=== PATIENT | male | born 1945 | race Caucasian/White ===

== ENCOUNTER → 2018-04-14 08:02 | Outpatient (CLI) | payer OTHER, SELFPAY ==
[2018-04-14 08:28] LABS: Add Manual Diff / Slide Review NO; Basophils Percent Auto 0.8 % (0-2); Hemoglobin 15.3 g/dL (13.5-17.5); Lymphocytes Percent Auto 32.8 % (25-40); Mean Corpuscular HGB Conc 33.3 % (30-36); Mean Corpuscular Hemoglobin 30.4 PG (26-34); Mean Corpuscular Volume 91.6 fL (80-100); Monocytes Percent Auto 10.9 % (3-14); Neutrophils Absolute Auto 2300 /uL (3000-5900); Neutrophils Percent Auto 50.5 % (50-75); Platelet Count 193 X10^3/uL (150-400); Red Blood Cell Count 5.02 X10^6/uL (4.5-5.9); Red Cell Distribution Width 13.1 % (11.6-14.8); White Blood Cell Count 4.6 X10^3/uL (4.5-11.0)
[2018-04-14 08:52] LABS: Alanine Aminotransferase 55 IU/L (21-72); Albumin 4.1 g/dL (3.5-5.0); Albumin Globulin Ratio 1.4 (1.0-2.8); Alkaline Phosphatase 92 U/L (38-126); Aspartate Aminotransferase 36 IU/L (17-59); BUN Creatinine Ratio 24.3 (6-22); Bilirubin Total 0.6 mg/dL (0.2-1.3); Blood Urea Nitrogen 17 mg/dL (9-20); Calcium 9.3 mg/dL (8.4-10.2); Carbon Dioxide 24 mmol/L (22-32); Chloride 104 mmol/L (98-107); Cholesterol 162 mg/dL (140-199); Estimated Glomerular Filt Rate > 60.0 mL/min (>60); Globulin 2.9 g/dL (1.7-4.1); Glucose 100 mg/dL (80-110); HDL Cholesterol 47 mg/dL (40-60); HEMOLYSIS < 15 (0-50); LDL Cholesterol Calculated 98 mg/dL (<100); Potassium 4.1 mmol/L (3.4-5.1); Sodium 140 mmol/L (137-145); Triglycerides 83 mg/dL (35-150)
== END ==
PROVIDERS: PCP Family Medicine; Visit Provider Family Medicine
DX: I10 Essential (primary) hypertension (principal); E78.2 Mixed hyperlipidemia
CPT/HCPCS: 36415; 80053; 80061; 85025

== ENCOUNTER → 2018-11-09 12:43 | Outpatient (CLI) | payer OTHER, SELFPAY ==
--- NOTE | 2018-11-09 12:45 | DI.RAD.S_ITS ---
PROCEDURE: XR LUMBAR SPINE MIN 4V INDICATIONS: Low back pain TECHNIQUE: 5 views of the lumbar spine were acquired. COMPARISON: None. FINDINGS: Bones: No fracture or focal osseous destruction. Levoscoliosis centered at the L3 level. Trace retrolisthesis of L1 on L2 and L3 on L4. Diffuse facet arthropathy. Moderate narrowing of all of the lumbar disc spaces. Endplate sclerosis and spurring seen throughout Soft tissues: Overlying bowel gas pattern is normal. No suspicious soft tissue calcifications. Atherosclerotic calcified plaques seen in the aorta Oblique images: No pars defects. IMPRESSION: Levoscoliosis. Moderate diffuse lumbar disc degeneration and facet arthropathy. Dictated by: Earle Perez M.D. on 11/09/2018 at 13:48 Approved by: Earle Perez M.D. on 11/09/2018 at 13:50
== END ==
PROVIDERS: PCP Family Medicine; Visit Provider Registered Nurse
DX: M54.5 Low back pain (principal); M51.36 Other intervertebral disc degeneration, lumbar region; M47.816 Spondylosis without myelopathy or radiculopathy, lumbar region; M41.86 Other forms of scoliosis, lumbar region
CPT/HCPCS: 72110

== ENCOUNTER → 2018-12-22 11:26 | Outpatient (CLI) | payer OTHER, SELFPAY ==
[2018-12-22 12:06] LABS: Add Manual Diff / Slide Review NO; Basophils Absolute Auto 100 /uL (0-100); Basophils Percent Auto 0.9 % (0-2); Eosinophils Absolute Auto 200 /uL (0-450); Hematocrit 45.6 % (41-53); Hemoglobin 15.1 g/dL (13.5-17.5); Lymphocytes Absolute Auto 1400 /uL (1100-4500); Lymphocytes Percent Auto 24.7 % (25-40); Mean Corpuscular HGB Conc 33.1 % (30-36); Mean Corpuscular Hemoglobin 29.8 PG (26-34); Mean Corpuscular Volume 89.8 fL (80-100); Monocytes Absolute Auto 600 /uL (0-900); Monocytes Percent Auto 11.2 % (3-14); Neutrophils Absolute Auto 3400 /uL (1500-7000); Neutrophils Percent Auto 60.2 % (50-75); Platelet Count 212 X10^3/uL (150-400); Red Blood Cell Count 5.08 X10^6/uL (4.5-5.9); Red Cell Distribution Width 13.4 % (11.6-14.8); White Blood Cell Count 5.6 X10^3/uL (4.5-11.0)
[2018-12-22 16:12] LABS: Alanine Aminotransferase 56 IU/L (21-72); Albumin 4.3 g/dL (3.5-5.0); Albumin Globulin Ratio 1.5 (1.0-2.8); Alkaline Phosphatase 108 U/L (38-126); Aspartate Aminotransferase 41 IU/L (17-59); BUN Creatinine Ratio 25.7 (6-22); Bilirubin Total 0.5 mg/dL (0.2-1.3); Blood Urea Nitrogen 18 mg/dL (9-20); Calcium 9.6 mg/dL (8.4-10.2); Carbon Dioxide 25 mmol/L (22-32); Chloride 102 mmol/L (98-107); Cholesterol 160 mg/dL (140-199); Estimated Glomerular Filt Rate > 60.0 mL/min (>60); Globulin 2.9 g/dL (1.7-4.1); Glucose 95 mg/dL (80-110); HDL Cholesterol 49 mg/dL (40-60); HEMOLYSIS 18 (0-50); LDL Cholesterol Calculated 90 mg/dL (<100); Potassium 4.1 mmol/L (3.4-5.1); Sodium 138 mmol/L (137-145); Total Protein 7.2 g/dL (6.3-8.2); Triglycerides 104 mg/dL (35-150)
[2018-12-22 16:46] LABS: Prostate Specific Antigen Scrn 1.45 ng/mL (0.1-4.0)
[2018-12-22 16:47] LABS: TSH w/ Reflex to FT4 1.04 uIU/mL (0.47-4.68)
== END ==
PROVIDERS: PCP Family Medicine; Visit Provider Family Medicine
DX: E78.2 Mixed hyperlipidemia (principal); I10 Essential (primary) hypertension; I25.10 Atherosclerotic heart disease of native coronary artery without angina pectoris; N40.1 Benign prostatic hyperplasia with lower urinary tract symptoms; R35.0 Frequency of micturition; Z12.5 Encounter for screening for malignant neoplasm of prostate
CPT/HCPCS: 36415; 80053; 80061; 84443; 85025; G0103

== ENCOUNTER 2019-02-15 11:15 | Outpatient (RCR) | payer OTHER, SELFPAY ==
--- NOTE | 2018-11-30 09:45 | PT.OPPOC ---
Current Diagnoses Low back pain (11/30/18) Muscle weakness (generalized) (11/30/18) Sprain of sacroiliac joint, sequela (11/30/18) Provider Visit Care Team Role Provider Type Flex Dailey MD Attending Provider Physician Primary Care Provider Specialty: Family Practice Address: [address] [place] [address], [id number] Email: [email or web address] Plan Of Care PT-OP-T Assessment and Plan Start: 12/01/18 11:26 Freq: Status: Active Protocol: Document 11/30/18 09:45 RCC (Rec: 12/01/18 13:04 RCC [email or web address]) Physical Therapy Assessment Rehab Potential Rehabilitation Potential Good Evaluation Complexity Number of Personal Factors/Comorbidities 1-2 Number of Body Systems Impaired 3 Clinical Presentation at Evaluation Stable Impairments Impairments Activity Tolerance Pain ROM Soft Tissue Mobility Strength Goals LE weakness Impairment hip and ankle weakness Mushroom Farmer Goal (LTG) Pt with demonstrate 5/5 grade with manual muscle testing in hip flexion, abduction, and extension as well as ankle DF prior to d/c to improve with LE stability. LTG Duration 6 weeks lumbar ROM Impairment limited ROM in the lumbar spine Mushroom Farmer Goal (LTG) Lumbar side-bending equal bilaterally and lumbar extension to 20 degrees without pain prior to d/c. LTG Duration 6 weeks Recreational activities Impairment unable to perform usual cardio and resistance training Snf Goal (LTG) Pt will return to 30 min of cardio and 1 hr of resistance training (upper and lower body ) without increased report of low back pain, and at his prior level of activity before d/c. LTG Duration 6 weeks Pain Impairment 3/10 rated low back pain Short Term Goal (STG) 1/10 pain or less reported STG Duration 3 weeks Snf Goal (LTG) 0/10 pain in low back prior to d/c with normal and daily activities. LTG Duration 6 weeks Modified Oswestry Impairment 24% perceived disability due to low back pain on Modified Oswestry Snf Goal (LTG) Pt will have a perceived disability score of 12% or less prior to d/c to demonstrate improvements with daily activities and positions . LTG Duration 6 weeks Assessment Summary Assessment Pt presents with signs and symptoms consistent with SI joint dysfunction, R>L with positive SRI and provocation testing. Pt does have increased tension and tenderness throughout the lumbar paraspinals and bilateral QL as well, but no signs of disc herniation or involvement. Pt's coordination of the LE appear to be WNL, however, given pt's new diagnosis of [place]'s Chorea, he would likely benefit from coordination training, as well as progression of LE and core stabilization dynamically with balance and gait. Pt is a good candidate for skilled physical therapy to address his impairments and goals listed above, to return back to prior level of function and modification of HEP to include optimal exercises to avoid injury recurrence. Pt may also benefit from aquatic physical therapy to promote exercise with decreased WB throughout the lumbar spine given his facet arthropaty and degeneration noted in radiograph. Physical Therapy Plan Frequency and Duration Frequency of Treatment 2x/Week Duration of Treatment 6 weeks Plan of Care Start Date 11/30/18 Plan of Care End Date 01/11/19 Therapeutic Interventions Therapeutic Interventions Aquatic Therapy Balance Training Coordination Training Gait Training Home Exercise Program Joint Mobilizations Manual Therapy Neuromuscular Re-education Patient/Caregiver Education Self-Care/Home Management Soft Tissue Mobilization Taping Therapeutic Activities Therapeutic Exercises Modalities Cold Pack/Ice Massage Electric Stimulation Hot Packs Ultrasound Next Visit Focus/Plan Next Note Type Treatment Note Next Visit Plan review transverse abdominal training- gradually build up to LE movements with core activation, quadruped alternating LE lift if not painful, child's pose, cat/cow if not painful, clamshells Plan of Care Dates Plan of Care Start Date 11/30/18 Plan of Care End Date 01/11/19 Please Sign and Return: I have reviewed this Plan of Care and certify that the skilled therapy services above are required to meet the patient?s needs. Physician Signature Date Printed Name and Credentials Clinical Instructor Signature Printed Name and Credentials
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
--- NOTE | 2019-01-12 09:45 | PT.OPPOC ---
Current Diagnoses Low back pain (01/12/19) Provider Visit Care Team Role Provider Type Flex Dailey MD Attending Provider Physician Primary Care Provider Specialty: Family Practice Address: [address] [place] [address], [id number] Email: [email or web address] Plan Of Care PT-OP-T Assessment and Plan Start: 12/01/18 11:26 Freq: Status: Active Protocol: Document 01/12/19 09:45 RCC (Rec: 01/12/19 13:02 RCC [email or web address]) Physical Therapy Assessment Goals LE weakness Impairment hip and ankle weakness Fpc Goal (LTG) Pt with demonstrate 5/5 grade with manual muscle testing in hip flexion, abduction, and extension as well as ankle DF prior to d/c to improve with LE stability. 01/12/19: good improvements LTG Duration 4 weeks lumbar ROM Impairment limited ROM in the lumbar spine Fpc Goal (LTG) Lumbar side-bending equal bilaterally and lumbar extension to 20 degrees without pain prior to d/c. LTG Duration achieved 01/12/19 Recreational activities Impairment unable to perform usual cardio and resistance training Collector Of Aquarium [employer]imens Goal (LTG) Pt will return to 30 min of cardio and 1 hr of resistance training (upper and lower body ) without increased report of low back pain, and at his prior level of activity before d/c. 01/12/19: good improvements. Up to 20 min on elliptical LTG Duration 4 weeks Pain Impairment 3/10 rated low back pain Short Term Goal (STG) 1/10 pain or less reported 01/12/19: good improvements. 2/ 10 at most with times of 0/10 STG Duration 2 weeks Collector Of Aqu[employer] Goal (LTG) 0/10 pain in low back prior to d/c with normal and daily activities. LTG Duration 4 weeks Modified Oswestry Impairment 24% perceived disability due to low back pain on Modified Oswestry Fpc Goal (LTG) Pt will have a perceived disability score of 12% or less prior to d/c to demonstrate improvements with daily activities and positions . LTG Duration 4 weeks Progress Towards Goals Progress Towards Goals Progressing Toward Goals Assessment Summary Assessment Pt is up to doing cardio training for 20 min with slight pain but able to adjust his low back and pelvis appropriately to eliminate pain. Pt still requiring cuing for pelvis and posture with dynamic stabilization activities, and not yet back to his prior level of function . Plan to re-assess in 4 weeks with follow-up with pt performing HEP and to continue to address impairments. Physical Therapy Plan Frequency and Duration Frequency of Treatment 2x/Week Duration of Treatment 4 weeks Plan of Care Start Date 01/12/19 Plan of Care End Date 02/09/19 Therapeutic Interventions Therapeutic Interventions Aquatic Therapy Balance Training Coordination Training Gait Training Home Exercise Program Joint Mobilizations Manual Therapy Neuromuscular Re-education Patient/Caregiver Education Self-Care/Home Management Soft Tissue Mobilization Taping Therapeutic Activities Therapeutic Exercises Modalities Cold Pack/Ice Massage Electric Stimulation Hot Packs Ultrasound Next Visit Focus/Plan Next Note Type Progress Note Next Visit Plan re-assess obj. measures again at next session and progress stabilization activities as tolerated. Plan of Care Dates Plan of Care Start Date 01/12/19 Plan of Care End Date 02/09/19 Please Sign and Return: I have reviewed this Plan of Care and certify that the skilled therapy services above are required to meet the patient?s needs. Physician Signature Date Printed Name and Credentials Clinical Instructor Signature Printed Name and Credentials
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
== END 2019-05-24 12:48 | disposition home or self-care (01) ==
LOC: PHYS 11:15
PROVIDERS: PCP Family Medicine; Visit Provider Family Medicine
DX: M54.5 Low back pain (principal)
CPT/HCPCS: 97110; 97140; 97161

== ENCOUNTER → 2020-03-27 14:17 | Outpatient (CLI) | payer MEDICARE, SELFPAY ==
[2020-03-27 15:05] LABS: Add Manual Diff / Slide Review NO; Basophils Absolute Auto 100 /uL (0-100); Basophils Percent Auto 0.9 % (0-2); Eosinophils Absolute Auto 700 /uL (0-450); Eosinophils Percent Auto 12.3 % (2-4); Hematocrit 43.8 % (41-53); Hemoglobin 14.8 g/dL (13.5-17.5); Lymphocytes Absolute Auto 1600 /uL (1100-4500); Lymphocytes Percent Auto 27.9 % (25-40); Mean Corpuscular HGB Conc 33.9 % (30-36); Mean Corpuscular Hemoglobin 30.4 PG (26-34); Mean Corpuscular Volume 89.6 fL (80-100); Monocytes Absolute Auto 700 /uL (0-900); Monocytes Percent Auto 11.9 % (3-14); Neutrophils Absolute Auto 2800 /uL (1500-7000); Platelet Count 191 X10^3/uL (150-400); Red Blood Cell Count 4.89 X10^6/uL (4.5-5.9); Red Cell Distribution Width 13.6 % (11.6-14.8); White Blood Cell Count 5.9 X10^3/uL (4.5-11.0)
[2020-03-27 15:41] LABS: Alanine Aminotransferase 38 IU/L (<50); Albumin 3.9 g/dL (3.5-5.0); Albumin Globulin Ratio 1.6 (1.0-2.8); Alkaline Phosphatase 109 U/L (38-126); Aspartate Aminotransferase 33 IU/L (17-59); BUN Creatinine Ratio 26.5 (6-22); Bilirubin Total 0.3 mg/dL (0.2-1.3); Blood Urea Nitrogen 22 mg/dL (9-20); Calcium 9.8 mg/dL (8.4-10.2); Carbon Dioxide 26 mmol/L (22-32); Chloride 103 mmol/L (98-107); Estimated Glomerular Filt Rate > 60.0 mL/min (>60); Globulin 2.4 g/dL (1.7-4.1); Glucose 90 mg/dL (80-110); HEMOLYSIS < 15 (0-50); Potassium 4.6 mmol/L (3.4-5.1); Sodium 136 mmol/L (137-145); Total Protein 6.3 g/dL (6.3-8.2)
[2020-03-27 16:47] LABS: Folate 16.4 ng/mL (2.76-20.0); Vitamin B12 515 pg/mL (239-931)
== END ==
PROVIDERS: PCP Family Medicine; Referring Provider Family Medicine; Visit Provider Family Medicine
DX: G62.9 Polyneuropathy, unspecified (principal)
CPT/HCPCS: 36415; 80053; 82607; 82746; 84443; 85025

== ENCOUNTER → 2020-04-25 09:44 | Outpatient (CLI) | payer MEDICARE, SELFPAY | PROVIDERS: Family Provider Family Medicine; PCP Family Medicine; Referring Provider Family Medicine; Visit Provider Family Medicine | DX: G62.9 Polyneuropathy, unspecified (principal); R20.2 Paresthesia of skin | CPT/HCPCS: 95886; 95911 ==

== ENCOUNTER → 2020-07-29 08:01 | Outpatient (CLI) | payer MEDICARE, SELFPAY ==
[2020-07-29 09:20] LABS: Cholesterol 161 mg/dL (140-199); HDL Cholesterol 47 mg/dL (40-60); LDL Cholesterol Calculated 102 mg/dL (<100); Triglycerides 61 mg/dL (35-150)
== END ==
PROVIDERS: Family Provider Family Medicine; PCP Family Medicine; Referring Provider Internal Medicine Cardiovascular Disease; Visit Provider Internal Medicine Cardiovascular Disease
DX: E78.5 Hyperlipidemia, unspecified (principal)
CPT/HCPCS: 36415; 80061

== ENCOUNTER → 2020-10-22 10:16 | Outpatient (CLI) | payer MEDICARE, SELFPAY ==
[2020-10-22 12:08] LABS: Prostate Specific Antigen 0.688 ng/mL (0.10-4.00)
== END ==
PROVIDERS: Family Provider Family Medicine; PCP Family Medicine; Referring Provider Specialist; Visit Provider Specialist
DX: N40.0 Benign prostatic hyperplasia without lower urinary tract symptoms (principal)
CPT/HCPCS: 36415; 84153

== ENCOUNTER 2021-01-07 22:51 | Observation (INO) | payer MEDICARE, SELFPAY ==
--- NOTE | 2021-01-07 23:05 | DI.RAD.S_ITS ---
PROCEDURE: XR CHEST 1V INDICATIONS: chest pain TECHNIQUE: One view of the chest was acquired. COMPARISON: [facility], CHEST 1 VIEW, 07/27/2017, 14:56. [facility], , CHEST 1 VIEW, 03/10/2016, 9:18. FINDINGS: Surgical changes and devices: Sternotomy wires, presumed prior CABG.. Lungs and pleura: Lungs are clear. No pleural effusions or pneumothorax. Mediastinum: Mediastinal contours appear normal. Heart size is normal. Bones and chest wall: No suspicious bony lesions. Overlying soft tissues appear unremarkable. IMPRESSION: Prior CABG, no acute disease. Dictated by: Maurice Moore M.D. on 01/08/2021 at 8:25 Approved by: Maurice Moore M.D. on 01/08/2021 at 8:26
--- NOTE | 2021-01-07 23:13 | ED_ITS ---
HPI - Chest Pain General Chief Complaint: Chest Pain Stated Complaint: chest pain for an hour Time Seen by Provider: 01/07/21 22:53 Source: patient and family Mode of arrival: Ambulatory Limitations: no limitations History of Present Illness HPI narrative: 75-year-old male n former smoker with history of coronary artery disease status post three-vessel CABG, Vicente's chorea, neuropathy, hypertension and a flutter presents with his in the chief complaint of sudden onset left-sided chest pressure that started while at rest. He states he was in his normal state of health over the course of the day and was laying down trying to sleep when his pain started. He states there is no obvious provocation, palliation nor radiation. He states it is 3/10 and reminds him of the pain he had with previous cardiac disease. He denies any exertional component nor recent exercise intolerance. He denies any unexplained diaphoresis or nausea. Related Data Home Medications Medication Instructions Recorded Confirmed metoprolol succinate [Toprol XL] 12.5 mg PO BID #0 07/27/17 12/31/20 aspirin 81 mg tablet,delayed 81 mg PO BID tab 11/09/18 12/31/20 release acetaminophen 500 mg tablet 500 mg PO Q6H PRN 05/02/20 12/31/20 cholecalciferol (vitamin D3) 50 50 mcg PO BID cap 05/02/20 12/31/20 mcg (2,000 unit) capsule famotidine 20 mg tablet 20 mg PO DAILY 05/02/20 12/31/20 folic acid 400 mcg tablet 0.4 mg PO DAILY 05/02/20 12/31/20 melatonin 5 mg tablet 5 mg PO BEDTIME PRN 05/02/20 12/31/20 omega-3 fatty acids 1,000 mg 1,000 mg PO DAILY 05/02/20 12/31/20 capsule sildenafil (pulm.hypertension) 20 20 mg PO TID 05/02/20 12/31/20 mg tablet Previous Rx's Medication Instructions Recorded atorvastatin 80 mg tablet 80 mg PO HS #90 tab 11/08/19 fluticasone propionate 50 1 spray INTRANASAL BID #47.4 ml 11/08/19 mcg/actuation nasal spray,suspension losartan 25 mg tablet 25 mg PO QDAY #90 tab 11/08/19 celecoxib 100 mg capsule 100 mg PO DAILY #90 cap 11/13/19 tamsulosin 0.4 mg capsule 0.8 mg PO QDAY #180 cap 11/20/19 bupropion HCl 100 mg tablet 100 mg PO TID #90 tab 08/22/20 acyclovir 400 mg tablet 400 mg PO TID PRN 7 Days #21 tab 11/13/20 finasteride 5 mg tablet 5 mg PO DAILY #90 tab 11/13/20 Allergies Allergy/AdvReac Type Severity Reaction Status Date / Time Sulfa (Sulfonamide Allergy Severe rash and Verified 12/31/20 13:46 Antibiotics) itching [SULFA (SULFONAMIDE ANTIBIOTICS)] Review of Systems Constitutional Constitutional: Denies chills, Denies fatigue, Denies fever(s), Denies frequent falls, Denies lethargy and Denies weakness Eyes Eyes: Denies change in vision, Denies eye discharge, Denies irritation and Denies loss of vision ENT Ears, Nose, Mouth, and Throat: Denies change in voice, Denies dizziness, Denies neck pain, Denies sore throat and Denies throat swelling Cardiovascular Cardiovascular: Reports chest pain, Denies irregular heart rhythm, Denies lightheadedness, Denies palpitations, Denies dyspnea, Denies dyspnea on exertion and Denies orthopnea Respiratory Respiratory: Denies cough, Denies dyspnea, Denies dyspnea on exertion and Denies wheezing Gastrointestinal Gastrointestinal: Denies abdominal pain, Denies change in bowel habits, Denies diarrhea, Denies nausea and Denies vomiting Musculoskeletal Musculoskeletal: Denies neck pain and Denies numbness Integumentary/Breasts Skin/Breast: Denies pruritus, Denies erythema, Denies rash and Denies wounds Neurologic Neurologic: Denies behavioral changes, Denies confusion, Denies dizziness, Denies frequent falls, Denies loss of vision, Denies numbness and Denies weakness Psychiatric Psychiatric: Denies anxiety, Denies behavioral changes, Denies confusion, Denies depression, Denies homicidal ideation and Denies suicidal ideation Endocrine Endocrine: Denies fatigue, Denies flushing and Denies palpitations Hematologic/Lymphatic Hematologic/Lymphatic: Denies easy bruising Allergic/Immunologic Allergic/Immunologic: Denies urticaria, Denies throat swelling and Denies wheezing Patient History Medical History Actinic keratosis (~2011) Anxiety Atrial fibrillation (~03/2016) Carpal tunnel syndrome (~2003) Chicken pox (~1956) Chronic back pain (~1985) DDD (degenerative disc disease), lumbar Depression Family history of [place]'s chorea GERD (gastroesophageal reflux disease) (~1983) Hay fever (~1969) Herpes (~1987) Hyperlipidemia (~1989) Hypertension (~1983) Measles (~1959) Mumps (~1960) Nocturia Osteoarthritis (~1984) Psoriasis (~2009) Psoriatic arthritis Seasonal allergies (~1969) Shoulder pain Sore of lower lip (~2009) Surgical History Anesthesia History of carpal tunnel repair History of hip replacement (~09/2010) History of knee replacement (~08/2014) History of third molar tooth extraction (~07/2010) History of tonsillectomy (~1949) History of vasectomy (~1983) Status post arthroscopy (~1961) Status post arthroscopy (~12/2009) Status post arthroscopy (~07/2009) Status post coronary artery bypass graft (~2015) Status post knee surgery (~1971) Trigger finger Family History Brother Age: 71 BPH (benign prostatic hypertrophy) Brother Age: 69 Essential hypertension Father Umang chorea Chronic obstructive pulmonary disease, unspecified COPD type Essential hypertension Mother CAD (coronary artery disease) Arthritis Ulcer Essential hypertension High cholesterol Mental health problem Grandfather History of heart attack Grandmother History of heart attack Grandfather History of heart attack Grandmother History of heart attack Social History marital status: Smoking Status: Former smoker (quit 1983) alcohol intake: current (1-2 A DAY ) substance use type: does not use Smoking Status: Former smoker (quit 1983) Exam Narrative Exam Narrative: GENERAL: [75] year old patient appears stated age. Well- nourished, well-developed patient, in mild distress. Anxious HEAD: Atraumatic. Normocephalic. EYES: Pupils equal round and reactive. Extraocular motions intact. No scleral icterus. No injection or drainage. ENT: Nose without bleeding, purulent drainage. Throat without erythema, tonsillar hypertrophy or exudate. Airway patent. NECK: Trachea midline. Non tender CARDIOVASCULAR: Regular rate and rhythm without murmurs, gallops, or rubs. Pain not reproducible with palpation of chest wall RESPIRATORY: Clear to auscultation. Breath sounds equal bilaterally. No wheezes, rales, or rhonchi. GASTROINTESTINAL: Abdomen soft, non-tender, nondistended. EXTREMITIES: No edema or joint tenderness. BACK: Nontender without deformity or crepitance. No flank tenderness. NEURO: AOx3. SKIN: No rash or erythema of visible areas Initial Vital Signs Initial Vital Signs: Vital Signs Pulse Rate 80 01/07/21 23:21 Blood Pressure 180/102 H 01/07/21 23:21 Course Orders Ordered: ED Orders 01/07/21 23:05 XR chest 1V Stat EKG-12 Lead Stat 01/07/21 23:10 Complete Blood Count AUTO DIFF Stat Comprehensive Metabolic Panel Stat Lipase Stat NT-proBNP (BNP-Adult 18+) Stat Partial Thromboplastin Time Stat Prothrombin Time INR Stat Troponin & CK Cardiac Panel Stat 01/08/21 EKG-12 Lead Stat 01/08/21 01:25 Troponin I Stat Sodium Chloride (Normal Saline 0.9%) 1,000 mls @ 150 mls/hr IV CONT HARDIK Last Admin: 01/07/21 23:20 Dose: 150 mls/hr Documented by: DIONY Discontinued Medications Aspirin (Aspirin 81 Mg Chew Tab) 324 mg PO NOW ONE Stop: 01/07/21 23:06 Last Admin: 01/07/21 23:22 Dose: 324 mg Documented by: DIONY Metoprolol Tartrate (Metoprolol Tartrate 5 Mg/5 Ml Inj) 5 mg IV NOW ONE Stop: 01/07/21 23:06 Last Admin: 01/07/21 23:23 Dose: 5 mg Documented by: DIONY Nitroglycerin (Nitroglycerin 0.4 Mg Sl Tab) 0.4 mg SL [id number] PRN PRN Reason: Chest Pain Last Admin: 01/07/21 23:36 Dose: 0.4 mg Documented by: Admin: 01/07/21 23:29 Dose: 0.4 mg Documented by: Admin: 01/07/21 23:21 Dose: 0.4 mg Documented by: DIONY Reevaluation(s) Reevaluation #1: Pain improved after 1st nitro, resolved after 2nd Consultations Consultation #1: Dr. Mera happy to accept on his service Vital Signs Vital signs: Vital Signs - 8 hr 01/07/21 23:21 01/07/21 23:29 01/07/21 23:30 Pulse Rate 80 75 80 Respiratory Rate 22 Blood Pressure 180/102 H 129/72 128/102 H Pulse Oximetry 97 01/07/21 23:36 01/08/21 01:42 01/08/21 01:45 Pulse Rate 75 70 71 Respiratory Rate 29 H 14 Blood Pressure 135/70 124/68 Pulse Oximetry 97 97 01/08/21 01:50 01/08/21 01:55 01/08/21 02:00 Pulse Rate 72 72 71 Respiratory Rate 16 13 13 Blood Pressure 133/65 128/60 127/60 Pulse Oximetry 96 97 95 01/08/21 02:05 01/08/21 02:10 01/08/21 02:15 Pulse Rate 72 72 74 Respiratory Rate 17 12 18 Blood Pressure 124/60 124/61 129/67 Pulse Oximetry 96 95 96 01/08/21 02:20 01/08/21 02:25 Pulse Rate 76 76 Respiratory Rate 17 15 Blood Pressure 123/66 127/65 Pulse Oximetry 97 97 MDM - Chest Pain Lab Data Result diagrams: 01/07/21 23:10 01/07/21 23:10 Labs: Lab Results 01/07/21 01/07/21 01/07/21 Range/Units 23:10 23:10 23:10 WBC 6.7 (4.5-11.0) X10^3/uL RBC 4.85 (4.5-5.9) X10^6/uL Hgb 14.7 (13.5-17.5) g/dL Hct 43.8 (41-53) % MCV 90.3 (80-100) fL MCH 30.3 (26-34) PG MCHC 33.6 (30-36) % RDW 14.0 (11.6-14.8) % Plt Count 185 (150-400) X10^3/uL Neut % (Auto) 46.6 L (50-75) % Lymph % (Auto) 31.6 (25-40) % [place] % (Auto) 14.3 H (3-14) % Eos % (Auto) 6.8 H (2-4) % Baso % (Auto) 0.7 (0-2) % Neut # (Auto) 3100 (3294-2903) /uL Lymph # (Auto) 2100 (0093-8989) /uL [place] # (Auto) 1000 H (0-900) /uL Eos # (Auto) 500 H (0-450) /uL Baso # (Auto) 0 (0-100) /uL PT 10.9 (10.1-12.7) SECONDS INR 1.0 (0.9-1.3) APTT 33 (26.4-36.2) SECONDS Sodium 137 (137-145) mmol/L Potassium 4.0 (3.4-5.1) mmol/L Chloride 103 (98-107) mmol/L Carbon Dioxide 28 (22-32) mmol/L BUN 20 (9-20) mg/dL Creatinine 0.72 (0.66-1.25) mg/dL Estimated GFR > 60.0 (>60) mL/min BUN/Creatinine Ratio 27.8 H (6-22) Glucose 101 (80-110) mg/dL Calcium 9.4 (8.4-10.2) mg/dL Total Bilirubin 0.2 (0.2-1.3) mg/dL AST 41 (17-59) IU/L ALT 61 H (<50) IU/L Alkaline Phosphatase 107 (38-126) U/L Total Creatine Kinase 250 H (55-170) U/L CK-MB (CK-2) 3.83 H (<2.37) ng/mL CK-MB (CK-2) Rel Index 1.5 (1.5-5.0) % Troponin I < 0.012 (0.01-0.034) ng/mL NT-Pro-B Natriuret Pep 51 (<125) pg/mL Total Protein 6.6 (6.3-8.2) g/dL Albumin 4.0 (3.5-5.0) g/dL Globulin 2.6 (1.7-4.1) g/dL Albumin/Globulin Ratio 1.5 (1.0-2.8) Lipase 138 (23-300) U/L 01/08/21 Range/Units 01:25 WBC (4.5-11.0) X10^3/uL RBC (4.5-5.9) X10^6/uL Hgb (13.5-17.5) g/dL Hct (41-53) % MCV (80-100) fL MCH (26-34) PG MCHC (30-36) % RDW (11.6-14.8) % Plt Count (150-400) X10^3/uL Neut % (Auto) (50-75) % Lymph % (Auto) (25-40) % [place] % (Auto) (3-14) % Eos % (Auto) (2-4) % Baso % (Auto) (0-2) % Neut # (Auto) (1001-2764) /uL Lymph # (Auto) (3267-0056) /uL [place] # (Auto) (0-900) /uL Eos # (Auto) (0-450) /uL Baso # (Auto) (0-100) /uL PT (10.1-12.7) SECONDS INR (0.9-1.3) APTT (26.4-36.2) SECONDS Sodium (137-145) mmol/L Potassium (3.4-5.1) mmol/L Chloride (98-107) mmol/L Carbon Dioxide (22-32) mmol/L BUN (9-20) mg/dL Creatinine (0.66-1.25) mg/dL Estimated GFR (>60) mL/min BUN/Creatinine Ratio (6-22) Glucose (80-110) mg/dL Calcium (8.4-10.2) mg/dL Total Bilirubin (0.2-1.3) mg/dL AST (17-59) IU/L ALT (<50) IU/L Alkaline Phosphatase (38-126) U/L Total Creatine Kinase (55-170) U/L CK-MB (CK-2) (<2.37) ng/mL CK-MB (CK-2) Rel Index (1.5-5.0) % Troponin I < 0.012 (0.01-0.034) ng/mL NT-Pro-B Natriuret Pep (<125) pg/mL Total Protein (6.3-8.2) g/dL Albumin (3.5-5.0) g/dL Globulin (1.7-4.1) g/dL Albumin/Globulin Ratio (1.0-2.8) Lipase (23-300) U/L Imaging Data Chest x-ray: Attestation: I personally reviewed and interpreted this imaging study as follows: My Impression: SHELBY Radiologist's Impression: No significant abnormalities ECG Data Interpretation: EKG is normal sinus rhythm rate [ 70] and free of any signs of ischemia. Occasional PACs No ST segmental elevation or depression. No T wave inversions MDM Narrative Medical decision making narrative: Patient with extensive cardiac history and sudden onset left-sided chest pressure. Absent of obvious ischemic change on EKG, troponin x2 negative. Pain resolves with nitro. Patient will require hospitalization for further evaluation and characterization of his discomfort including echo and stress test. Patient and understand the diagnosis and plan, questions answered to their apparent satisfaction Discharge Plan Departure Patient Disposition: Admitted as Observation Clinical Impression: Chest pain Qualifiers: Chest pain type: unspecified Qualified Code(s): R07.9 - Chest pain, unspecified Admit Date/Time: 01/08/21 02:29 Admit Provider: Hermes Mera
[2021-01-07] MEDS: SODIUM CHLORIDE 0.9% 1,000 ML 150 ML IV (23:20)
[2021-01-07 23:21] VITALS: BP 180/102; PULSE 80
[2021-01-07] MEDS: NITROGLYCERIN 0.4 MG SL TAB SL ×3 (23:21→23:36)
[2021-01-07] MEDS: ASPIRIN 81 MG CHEW TAB 324 MG PO (23:22)
[2021-01-07] MEDS: METOPROLOL TARTRATE 5 MG/5 ML INJ IV (23:23)
[2021-01-07 23:24] LABS: Add Manual Diff / Slide Review NO; Basophils Absolute Auto 0 /uL (0-100); Basophils Percent Auto 0.7 % (0-2); Eosinophils Absolute Auto 500 /uL (0-450); Eosinophils Percent Auto 6.8 % (2-4); Hematocrit 43.8 % (41-53); Hemoglobin 14.7 g/dL (13.5-17.5); Lymphocytes Absolute Auto 2100 /uL (1100-4500); Lymphocytes Percent Auto 31.6 % (25-40); Mean Corpuscular HGB Conc 33.6 % (30-36); Mean Corpuscular Hemoglobin 30.3 PG (26-34); Mean Corpuscular Volume 90.3 fL (80-100); Monocytes Absolute Auto 1000 /uL (0-900); Monocytes Percent Auto 14.3 % (3-14); Neutrophils Absolute Auto 3100 /uL (1500-7000); Neutrophils Percent Auto 46.6 % (50-75); Platelet Count 185 X10^3/uL (150-400); Red Blood Cell Count 4.85 X10^6/uL (4.5-5.9); White Blood Cell Count 6.7 X10^3/uL (4.5-11.0)
[2021-01-07 23:28] LABS: Alanine Aminotransferase 61 IU/L (<50); Albumin Globulin Ratio 1.5 (1.0-2.8); Alkaline Phosphatase 107 U/L (38-126); Aspartate Aminotransferase 41 IU/L (17-59); BUN Creatinine Ratio 27.8 (6-22); Bilirubin Total 0.2 mg/dL (0.2-1.3); Blood Urea Nitrogen 20 mg/dL (9-20); Calcium 9.4 mg/dL (8.4-10.2); Carbon Dioxide 28 mmol/L (22-32); Chloride 103 mmol/L (98-107); Creatine Kinase 250 U/L (55-170); Estimated Glomerular Filt Rate > 60.0 mL/min (>60); Globulin 2.6 g/dL (1.7-4.1); Glucose 101 mg/dL (80-110); HEMOLYSIS < 15 (0-50); Lipase 138 U/L (23-300); Sodium 137 mmol/L (137-145); Total Protein 6.6 g/dL (6.3-8.2)
[2021-01-07 23:29] VITALS: BP 129/72; PULSE 75
[2021-01-07 23:30] VITALS: BP 128/102; PULSE 80; RESP 22; O2SAT 97; BMI 22.1
[2021-01-07 23:32] LABS: Prothrombin Time 10.9 SECONDS (10.1-12.7)
[2021-01-07 23:35] LABS: PTT Partial Thromboplastin Tim 33 SECONDS (26.4-36.2)
[2021-01-07 23:36] VITALS: BP 135/70; PULSE 75
[2021-01-07 23:40] LABS: NT-proBNP (BNP-Adult 18+) 51 pg/mL (<125); Troponin I < 0.012 ng/mL (0.01-0.034)
[2021-01-07 23:43] LABS: CKMB % Relative Index 1.5 % (1.5-5.0); Creatine Kinase MB 3.83 ng/mL (<2.37)
[2021-01-08] VITALS (26 sets, daily range): BP systolic 120–162; BP diastolic 60–92; PULSE 70–85; RESP 12–32; TEMP 36.6–36.9; O2SAT 92–98; BMI 22.1
[2021-01-08 01:55] LABS: Troponin I < 0.012 ng/mL (0.01-0.034)
--- NOTE | 2021-01-08 04:24 | DI.ECHO.S_ITS ---
[facility]---------+ [facility] +---------+ : : [address] [place] : : : : [id number] : : : : Phone: [phone] Echocardiogram Report + + :Name: NAYAN PORTILLO Study Date: 01/08/2021 Height: 67 in : :[facility] ReadingLocation: Weight: 141 lb : : Gender: Male BSA: 1.7 m2 : :: 1945 Age: 75 yrs BP: 122/73 mmHg: :Reason For Study: CHEST PAIN : :Ordering Physician: ORAL, : :YVROSE Coffey Performed By: Jannie Mitchell : :Referring: YVROSE MIXON : + + Interpretation Summary Normal sinus rhythm. Normal LV size and wall thickness. Normal wall motion and left ventricular systolic function. Ejection fraction of 60-65%. Normal chamber sizes. No significant valvular abnormalities. Compared to prior study November 20, 2015 no changes have occurred. Procedure: A two-dimensional transthoracic echocardiogram with color flow and Doppler was performed. The study quality was technically adequate. Comparison is made with the echocardiogram of 11/28/2015. The patient was in sinus rhythm with heart rates between 67-88 bpm during the exam. Left Ventricle: The left ventricle is normal in size. The ejection fraction is estimated to be 60-65%. Diastolic parameters suggest probable normal left ventricular diastolic function and normal filling pressures. Right Ventricle: The right ventricle is grossly normal size. Right ventricular systolic function is at the lower limits of normal. Atria: The left atrial size is normal. Right atrial size is normal. There is no Doppler evidence for an interatrial shunt. Mitral Valve: The mitral valve is normal in structure and function. There is trace mitral regurgitation. Aortic Valve: The aortic valve is trileaflet. The aortic valve is slightly calcified. There is no aortic valve stenosis. No aortic regurgitation is present. Tricuspid Valve: The tricuspid valve is normal in structure and function. There is mild tricuspid regurgitation. The right ventricular systolic pressure is estimated to be at least 27 mmHg based on an estimated right atrial pressure of 3 mm Hg. Pulmonic Valve: The pulmonic valve is normal in structure and function. There is no pulmonic valvular regurgitation. Great Vessels: The aortic root is normal size. The dimensions of the ascending aorta are normal. The IVC is of normal diameter and collapses greater than 50% with a sniff. This suggests a low right atrial pressure of 3 mm Hg. Pericardium/ Pleura There is no pericardial effusion. There is no pleural effusion. MMode/2D Measurements & Calculations LVIDd: 4.5 cm LVOT diam: 2.0 cm LVIDs: 3.1 cm Ao root diam: 3.2 cm FS: 31.7 % asc Aorta Diam: 3.1 cm EPSS: 0.88 cm Ao Arch Diam (Prox Trans): 3.2 cm IVSd: 1.0 cm LVPWd: 0.79 cm LV vasquez. diameter/BSA (cm/m^2): 2.6 LV sys. diameter/BSA (cm/m^2): 1.8 LA A2 area: 20.7 cm2 RA long axis: 4.7 cm LA A4 area: 14.6 cm2 RA area: 13.5 cm2 LA length (vol): 4.9 cm RA vol: 33.0 ml LA vol: 52.2 ml RA : 18.9 ml/m2 LA vol index: 30.0 ml/m2 IVC diam: 1.4 cm RVD1 (basal): 2.9 cm TAPSE: 1.6 cm Doppler Measurements & Calculations Ao V2 max: 110.2 cm/sec LVOT Max Anthony: 87.6 cm/sec Ao V2 mean: 72.8 cm/sec LV V1 max P.1 mmHg Ao max P.9 mmHg LV V1 VTI: 18.7 cm Ao mean P.4 mmHg DAMIAN(I,D): 2.9 cm2 Ao V2 VTI: 20.5 cm DAMIAN(V,D): 2.5 cm2 sev ratio: 0.91 DAMIAN indexed to BSA (cm^2/m^2): 1.6 MV E max anthony: 68.7 cm/sec TR max anthony: 247.1 cm/sec MV A max anthony: 76.3 cm/sec TR max P.4 mmHg MV E/A: 0.90 PA V2 max: 123.7 cm/sec Med Peak E' Anthony: 6.9 cm/sec PA V2 mean: 74.6 cm/sec E/E' med: 10.0 PA mean P.6 mmHg Lat Peak E' Anthony: 9.1 cm/sec PA pr(Accel): 44.7 mmHg E/E' lat: 7.5 E/e' average: 8.7 MV dec time: 0.22 sec SVLVOT): 58.8 ml Electronically signed by: Michelle Mcfadden M.D. on Reading Physician:01/08/2021 01:58 PM
--- NOTE | 2021-01-08 04:31 | PC.NURSE ---
Admitted to room 217 with C/P CP, pain level now is 2-3 & reports it's tolerable. Oriented to his room showed how to call staff via call light & showed him TV & bed controls. Denies any fall for the last 3 months, diagnosed with Vicente's Chorea constant movement to his BLE's. NPO for oral care & brushed his teeth. Will cont. POC & monitor.
[2021-01-08 05:04] LABS: COVID19 - ADMIT (NP swab/PCR) Negative (Negative)
--- NOTE | 2021-01-08 07:19 | P.HP_ITS ---
History of Present Illness History of Present Illness Date Patient Seen: 01/08/21 Time Patient Seen: 07:20 Chief complaint: chest pain for an hour Narrative: 75-year-old gentleman with a history of coronary artery disease status post CABG [facility]'s chorea atrial fibrillation intermittent not on anticoagulation depression back pain hyperlipidemia hypertension psoriasis and psoriatic arthritis presents to the emergency department with the complaints of chest pain. Patient presents to the emergency room late last evening. Patient states he was in his normal state of health over the case of the day. Had some pre for dinner. Had some heartburn and reflux afterwards. Sometimes radiating up into his chest. Went to bed. Then he began to have some different type of pain. He is trying to lay down at night when he started to have pain in the left side of his chest. Says it did not happen with activity. Or anything that he did during the day. Pain was mild in intensity. 3/10 on the pain scale. Pain is a dull aching pain. Does not does state it is worse with activity twisting or turning. Came to the emergency room department was 4/10. Given n itroglycerin with a 2/10. He is still having 2/10 mild chest discomfort. Says the pain was in his chest. There is real no radiation of the pain. With this he did not have any associated shortness of breath palpitations dizziness lightheadedness. Patient History Medical History Actinic keratosis (~2011) Anxiety Atrial fibrillation (~03/2016) Carpal tunnel syndrome (~2003) Chicken pox (~195) Chronic back pain (~1985) DDD (degenerative disc disease), lumbar Depression Family history of Vicente's chorea GERD (gastroesophageal reflux disease) (~1983) Hay fever (~1969) Herpes (~1987) Hyperlipidemia (~1989) Hypertension (~1983) Measles (~1960) Mumps (~1960) Nocturia Osteoarthritis (~1984) Psoriasis (~2009) Psoriatic arthritis Seasonal allergies (~1969) Shoulder pain Sore of lower lip (~2009) Surgical History Anesthesia History of carpal tunnel repair History of hip replacement (~09/2010) History of knee replacement (~08/2014) History of third molar tooth extraction (~07/2010) History of tonsillectomy (~1949) History of vasectomy (~1983) Status post arthroscopy (~1961) Status post arthroscopy (~12/2009) Status post arthroscopy (~07/2009) Status post coronary artery bypass graft (~2015) Status post knee surgery (~1971) Trigger finger Family & Social History Family History Brother Age: 71 BPH (benign prostatic hypertrophy) Brother Age: 69 Essential hypertension Father Huntingtonj[place] chorea Chronic obstructive pulmonary disease, unspecified COPD type Essential hypertension Mother CAD (coronary artery disease) Arthritis Ulcer Essential hypertension High cholesterol Mental health problem Grandfather History of heart attack Grandmother History of heart attack Grandfather History of heart attack Grandmother History of heart attack Social History: household members spouse Prior Living Arrangements House Safety & Behavioral: Feels Safe in Current Yes Environment Been Physically Hurt or No Threatened By a Person Suicidal Ideation Description None Suicide Plan Description No Plan Tobacco & Substance use: Smoking Status Former smoker alcohol intake current alcohol intake frequency a few times a week Substance Use Type does not use Meds Home Medications and Allergies Home Medications Medication Instructions Recorded Confirmed Type metoprolol succinate [Toprol XL] 12.5 mg PO BID #0 07/27/17 01/08/21 History aspirin 81 mg tablet,delayed 81 mg PO BID tab 11/09/18 01/08/21 History release atorvastatin 80 mg tablet 80 mg PO HS #90 tab 11/08/19 01/08/21 Rx fluticasone propionate 50 1 spray INTRANASAL BID #47.4 ml 11/08/19 01/08/21 Rx mcg/actuation nasal spray,suspension losartan 25 mg tablet 25 mg PO QDAY #90 tab 11/08/19 01/08/21 Rx celecoxib 100 mg capsule 100 mg PO DAILY #90 cap 11/13/19 01/08/21 Rx tamsulosin 0.4 mg capsule 0.8 mg PO QDAY #180 cap 11/20/19 01/08/21 Rx acetaminophen 500 mg tablet 500 mg PO Q6H PRN 05/02/20 01/08/21 History cholecalciferol (vitamin D3) 50 50 mcg PO BID cap 05/02/20 01/08/21 History mcg (2,000 unit) capsule famotidine 20 mg tablet 10 mg PO DAILY 05/02/20 01/08/21 History folic acid 400 mcg tablet 0.4 mg PO DAILY 05/02/20 01/08/21 History melatonin 5 mg tablet 5 mg PO BEDTIME PRN 05/02/20 01/08/21 History omega-3 fatty acids 1,000 mg 1,000 mg PO DAILY 05/02/20 01/08/21 History capsule sildenafil (pulm.hypertension) 20 20 mg PO TID 05/02/20 01/08/21 History mg tablet bupropion HCl 100 mg tablet 100 mg PO TID #90 tab 08/22/20 01/08/21 Rx acyclovir 400 mg tablet 400 mg PO TID PRN 7 Days #21 tab 11/13/20 01/08/21 Rx finasteride 5 mg tablet 5 mg PO DAILY #90 tab 11/13/20 01/08/21 Rx ezetimibe 10 mg PO DAILY 01/08/21 01/08/21 History Allergies Allergy/AdvReac Type Severity Reaction Status Date / Time Sulfa (Sulfonamide Allergy Severe rash and Verified 12/31/20 13:46 Antibiotics) itching [SULFA (SULFONAMIDE ANTIBIOTICS)] Exam Vital Signs (past 8 hours): - 01/07/21 23:21 01/07/21 23:29 01/07/21 23:30 Temperature Pulse Rate 80 75 80 Respiratory Rate 22 Blood Pressure 180/102 H 129/72 128/102 H Pulse Oximetry 97 01/07/21 23:36 01/08/21 01:42 01/08/21 01:45 Temperature Pulse Rate 75 70 71 Respiratory Rate 29 H 14 Blood Pressure 135/70 124/68 Pulse Oximetry 97 97 01/08/21 01:50 01/08/21 01:55 01/08/21 02:00 Temperature Pulse Rate 72 72 71 Respiratory Rate 16 13 13 Blood Pressure 133/65 128/60 127/60 Pulse Oximetry 96 97 95 01/08/21 02:05 01/08/21 02:10 01/08/21 02:15 Temperature Pulse Rate 72 72 74 Respiratory Rate 17 12 18 Blood Pressure 124/60 124/61 129/67 Pulse Oximetry 96 95 96 01/08/21 02:20 01/08/21 02:25 01/08/21 02:30 Temperature Pulse Rate 76 76 81 Respiratory Rate 17 15 22 Blood Pressure 123/66 127/65 125/64 Pulse Oximetry 97 97 98 01/08/21 02:35 01/08/21 02:40 01/08/21 02:45 Temperature Pulse Rate 73 78 79 Respiratory Rate 15 22 26 H Blood Pressure 124/76 137/77 136/65 Pulse Oximetry 95 97 96 01/08/21 02:50 01/08/21 02:55 01/08/21 03:00 Temperature Pulse Rate 77 72 73 Respiratory Rate 24 13 13 Blood Pressure 135/65 128/65 127/65 Pulse Oximetry 97 95 94 01/08/21 03:05 01/08/21 03:10 01/08/21 03:15 Temperature Pulse Rate 76 75 79 Respiratory Rate 15 15 32 H Blood Pressure 120/73 122/73 Pulse Oximetry 94 92 97 01/08/21 04:00 Temperature 97.8 F Pulse Rate 75 Respiratory Rate 18 Blood Pressure 137/71 Pulse Oximetry 97 Oxygen Delivery Method Room Air Oxygen Flow Rate 0 Narrative Exam Narrative: Gen.: Alert good historian HEENT: NCAT PERRLA tympanic membranes are clear nares are patent oral mucosa is moist no tonsillar hypertrophy neck is supple without lymphadenopathy no thyroid enlargement. Cardio: S1-S2 regular rate and rhythm no murmurs appreciated. Respiratory: Lungs are clear to auscultation no wheezes or crackles normal respiratory effort. Abdomen: Soft nontender no rebound or guarding no liver spleen enlargement no appreciable hernias Extremities: Full range of motion no appreciable weakness no cyanosis or edema. Neurologic: Mild choreiform movements Objective Labs Result Diagrams: 01/07/21 23:10 01/07/21 23:10 Labs: Laboratory Results - last 24 hr 01/07/21 01/07/21 01/07/21 23:10 23:10 23:10 WBC 6.7 RBC 4.85 Hgb 14.7 Hct 43.8 MCV 90.3 MCH 30.3 MCHC 33.6 RDW 14.0 Plt Count 185 Neut % (Auto) 46.6 L Lymph % (Auto) 31.6 [place] % (Auto) 14.3 H Eos % (Auto) 6.8 H Baso % (Auto) 0.7 Neut # (Auto) 3100 Lymph # (Auto) 2100 [place] # (Auto) 1000 H Eos # (Auto) 500 H Baso # (Auto) 0 PT 10.9 INR 1.0 APTT 33 Sodium 137 Potassium 4.0 Chloride 103 Carbon Dioxide 28 BUN 20 Creatinine 0.72 Estimated GFR > 60.0 BUN/Creatinine Ratio 27.8 H Glucose 101 Calcium 9.4 Total Bilirubin 0.2 AST 41 ALT 61 H Alkaline Phosphatase 107 Total Creatine Kinase 250 H CK-MB (CK-2) 3.83 H CK-MB (CK-2) Rel Index 1.5 Troponin I < 0.012 NT-Pro-B Natriuret Pep 51 Total Protein 6.6 Albumin 4.0 Globulin 2.6 Albumin/Globulin Ratio 1.5 Lipase 138 SARS-CoV-2 (PCR) 01/08/21 01/08/21 01:25 03:15 WBC RBC Hgb Hct MCV MCH MCHC RDW Plt Count Neut % (Auto) Lymph % (Auto) [place] % (Auto) Eos % (Auto) Baso % (Auto) Neut # (Auto) Lymph # (Auto) [place] # (Auto) Eos # (Auto) Baso # (Auto) PT INR APTT Sodium Potassium Chloride Carbon Dioxide BUN Creatinine Estimated GFR BUN/Creatinine Ratio Glucose Calcium Total Bilirubin AST ALT Alkaline Phosphatase Total Creatine Kinase CK-MB (CK-2) CK-MB (CK-2) Rel Index Troponin I < 0.012 NT-Pro-B Natriuret Pep Total Protein Albumin Globulin Albumin/Globulin Ratio Lipase SARS-CoV-2 (PCR) Negative Assessment & Plan Assessment & Plan narrative: 75-year-old male with a history coronary artery disease CABG hypertension and hyperlipidemia with chest pain. Patient is mid the hospital for further evaluation and workup of his chest pain due to significant risk factors and age and concerning nature of his pain. He was admitted for serial cardiac enzymes. So far CPK and troponin have been negative. Patient's EKG shows previous inferior septal Q-waves in leads V1 through V3. Does not appear to be changed from previous. He is not having any current chest pain now. Will go ahead and proceed with an echocardiogram of his heart. And a stress test to rule out underlying high level of concern for acute coronary event. We will hold his beta-fortunato while he is here in the hospital so we can do a stress test. Patient will be continued on his statin and aspirin. Patient is also on an angiotensin receptor fortunato in this will be continued as well. Hopefully we can do the echocardiogram and stress test today and if it looks normal we can go ahead and discharge him home from the hospital. Hypertension. Patient has known history of hypertension. He is currently on losartan and metoprolol. His metoprolol will be held his losartan will be continued his blood pressure is well controlled. Hyperlipidemia. Patient is on high-dose statin and 80 mg a day we will continue his statin will check his lipid panel while he is here in the hospital. [facility]'s chorea. Moderate in severity. BPH. Patient is on Flomax as well as finasteride and will keep him on these medications. Disposition and plan. Further and workup and evaluation of his chest pain with an echocardiogram and a stress test today if able to schedule. Quality VTE Deep Vein Thrombosis/Pulmonary Embolism Present on Admission: No
[2021-01-08] MEDS: ACETAMINOPHEN 325 MG TABLET 650 MG PO (08:52)
[2021-01-08] MEDS: TAMSULOSIN 0.4 MG CAPSULE 0.8 MG PO (08:52)
[2021-01-08] MEDS: FINASTERIDE 5 MG TABLET PO (08:52)
[2021-01-08] MEDS: buPROPion 100 MG TABLET PO ×3 (08:53→21:05)
[2021-01-08 08:54] LABS: Troponin I < 0.012 ng/mL (0.01-0.034)
[2021-01-08] MEDS: EZETIMIBE 10 MG TABLET PO (08:56)
[2021-01-08] MEDS: LOSARTAN 25 MG TABLET PO (08:56)
[2021-01-08 09:02] LABS: Cholesterol 138 mg/dL (140-199); HDL Cholesterol 43 mg/dL (40-60); LDL Cholesterol Calculated 81 mg/dL (<100); Triglycerides 71 mg/dL (35-150)
--- NOTE | 2021-01-08 11:26 | CM.DANOTE ---
DCP: Case received, EMR reviewed and met with patient. Introduced self and role. Was able to obtain information from patient regarding his baseline activity status prior to hospitalization. DCP assessment completed with information currently available. Patient is a 75 year old male who admitted early this morning to the care of the hospitalist team. PCP: Dr. Dailey. Payer: confirmed: [employer]. Patient came to the hospital via private vehicle secondary to having some left sided chest pain. He does have a cardiac history. He will be getting an echo as well as a stress test today. Checked in with patient. He is alert and oriented, pleasant. He resides in [place] with hos spouse, Alyssa Butts. He is independent at baseline, drives, and uses no DME supplies. P: DCP to continue to follow for any needs. He should be able to go home after all of his tests and findings are complete. Bibiana Méndez RN/After School Caregiver
--- NOTE | 2021-01-08 13:27 | P.DS_ITS ---
History of Present Illness History of Present Illness Chief complaint: chest pain for an hour Narrative: 75-year-old gentleman with a history of coronary artery disease status post CABG Vicente's chorea atrial fibrillation intermittent not on anticoagulation depression back pain hyperlipidemia hypertension psoriasis and psoriatic arthritis presents to the emergency department with the complaints of chest pain. Patient presents to the emergency room late last evening. Patient states he was in his normal state of health over the case of the day. Had some pre for dinner. Had some heartburn and reflux afterwards. Sometimes radiating up into his chest. Went to bed. Then he began to have some different type of pain. He is trying to lay down at night when he started to have pain in the left side of his chest. Says it did not happen with activity. Or anything that he did during the day. Pain was mild in intensity. 3/10 on the pain scale. Pain is a dull aching pain. Does not does state it is worse with activity twisting or turning. Came to the emergency room department was 4/10. Given ni troglycerin with a 2/10. He is still having 2/10 mild chest discomfort. Says the pain was in his chest. There is real no radiation of the pain. With this he did not have any associated shortness of breath palpitations dizziness lightheadedness. Discharge Providers Provider Date of admission: 01/08/21 02:29 Discharge Date: 01/09/21 Primary care physician: Flex Dailey MD Consults: 01/08/21 07:17 Consult to Discharge Planning Routine Comment: Discharge provider: Flex Dailey MD Summary Hospital Course Discharge Diagnosis: Chest pain normal cardiac enzymes history of coronary artery disease CABG hyperlipidemia hypertension echocardiogram stress test pending at this point. Patient was admitted with chest pain in the hospital. Had cardiac enzymes which were negative throughout EKG shows old inferior septal Q-waves. Patient had an echocardiogram performed this morning which is not available yet for reading. Patient was not able to complete the stress test on the day of his admission due to a scheduling issue. Patient's stress test is happening today at the day of discharge. Results are not back. Will be discharged home and will follow-up as an outpatient. . Hypertension. Blood pressure is well controlled. Continue with home antihypertensive medication. Patient will hold his beta-fortunato until after his stress test. Blood pressure looks well controlled in the hospital. Will restarted back on his beta-fortunato after his stress test. Hyperlipidemia. Patient will be continued on his high intensity dose statin medication. LDL cholesterol was checked in the hospital which looked good. He is on appropriate statin medication. BPH. Patient will be continued on his Flomax and finasteride. No significant urinary difficulty at this point. Patient has schedule the point with urologist. [place]'s chorea. Stable at this point. Certainly compounded his ability to be able to walk steadily for his stress test. Exam Vital Signs (past 8 hours): - 01/08/21 08:25 01/08/21 11:30 Temperature 98.4 F 98.1 F Pulse Rate 76 74 Respiratory Rate 20 22 Blood Pressure 137/75 139/74 Pulse Oximetry 94 95 Oxygen Delivery Method Room Air Oxygen Flow Rate 0 Objective Imaging Echo: Radiologist's impression: Interpretation Summary Normal sinus rhythm. Normal LV size and wall thickness. Normal wall motion and left ventricular systolic function. Ejection fraction of 60-65%. Normal chamber sizes. No significant valvular abnormalities. Compared to prior study November 20, 2015 no changes have occurred. Labs Result Diagrams: 01/07/21 23:10 01/07/21 23:10 Labs: Laboratory Results - last 24 hr 01/07/21 01/07/21 01/07/21 23:10 23:10 23:10 WBC 6.7 RBC 4.85 Hgb 14.7 Hct 43.8 MCV 90.3 MCH 30.3 MCHC 33.6 RDW 14.0 Plt Count 185 Neut % (Auto) 46.6 L Lymph % (Auto) 31.6 [place] % (Auto) 14.3 H Eos % (Auto) 6.8 H Baso % (Auto) 0.7 Neut # (Auto) 3100 Lymph # (Auto) 2100 [place] # (Auto) 1000 H Eos # (Auto) 500 H Baso # (Auto) 0 PT 10.9 INR 1.0 APTT 33 Sodium 137 Potassium 4.0 Chloride 103 Carbon Dioxide 28 BUN 20 Creatinine 0.72 Estimated GFR > 60.0 BUN/Creatinine Ratio 27.8 H Glucose 101 Calcium 9.4 Total Bilirubin 0.2 AST 41 ALT 61 H Alkaline Phosphatase 107 Total Creatine Kinase 250 H CK-MB (CK-2) 3.83 H CK-MB (CK-2) Rel Index 1.5 Troponin I < 0.012 NT-Pro-B Natriuret Pep 51 Total Protein 6.6 Albumin 4.0 Globulin 2.6 Albumin/Globulin Ratio 1.5 Triglycerides Cholesterol LDL Cholesterol, Calc HDL Cholesterol Lipase 138 SARS-CoV-2 (PCR) 01/08/21 01/08/21 01/08/21 01:25 03:15 08:11 WBC RBC Hgb Hct MCV MCH MCHC RDW Plt Count Neut % (Auto) Lymph % (Auto) [place] % (Auto) Eos % (Auto) Baso % (Auto) Neut # (Auto) Lymph # (Auto) [place] # (Auto) Eos # (Auto) Baso # (Auto) PT INR APTT Sodium Potassium Chloride Carbon Dioxide BUN Creatinine Estimated GFR BUN/Creatinine Ratio Glucose Calcium Total Bilirubin AST ALT Alkaline Phosphatase Total Creatine Kinase CK-MB (CK-2) CK-MB (CK-2) Rel Index Troponin I < 0.012 < 0.012 NT-Pro-B Natriuret Pep Total Protein Albumin Globulin Albumin/Globulin Ratio Triglycerides Cholesterol LDL Cholesterol, Calc HDL Cholesterol Lipase SARS-CoV-2 (PCR) Negative 01/08/21 08:11 WBC RBC Hgb Hct MCV MCH MCHC RDW Plt Count Neut % (Auto) Lymph % (Auto) [place] % (Auto) Eos % (Auto) Baso % (Auto) Neut # (Auto) Lymph # (Auto) [place] # (Auto) Eos # (Auto) Baso # (Auto) PT INR APTT Sodium Potassium Chloride Carbon Dioxide BUN Creatinine Estimated GFR BUN/Creatinine Ratio Glucose Calcium Total Bilirubin AST ALT Alkaline Phosphatase Total Creatine Kinase CK-MB (CK-2) CK-MB (CK-2) Rel Index Troponin I NT-Pro-B Natriuret Pep Total Protein Albumin Globulin Albumin/Globulin Ratio Triglycerides 71 Cholesterol 138 L LDL Cholesterol, Calc 81 HDL Cholesterol 43 Lipase SARS-CoV-2 (PCR) [facility] Medical History Actinic keratosis (~2011) Anxiety Atrial fibrillation (~03/2016) Carpal tunnel syndrome (~2003) Chicken pox (~1956) Chronic back pain (~1985) DDD (degenerative disc disease), lumbar Depression Family history of Vicente's chorea GERD (gastroesophageal reflux disease) (~1983) Hay fever (~1969) Herpes (~1987) Hyperlipidemia (~1989) Hypertension (~1983) Measles (~1959) Mumps (~1960) Nocturia Osteoarthritis (~1984) Psoriasis (~2009) Psoriatic arthritis Seasonal allergies (~1969) Shoulder pain Sore of lower lip (~2009) Surgical History Anesthesia History of carpal tunnel repair History of hip replacement (~09/2010) History of knee replacement (~08/2014) History of third molar tooth extraction (~07/2010) History of tonsillectomy (~1949) History of vasectomy (~1983) Status post arthroscopy (~1961) Status post arthroscopy (~12/2009) Status post arthroscopy (~07/2009) Status post coronary artery bypass graft (~2015) Status post knee surgery (~1971) Trigger finger Family History Brother Age: 71 BPH (benign prostatic hypertrophy) Brother Age: 69 Essential hypertension Father [place] chorea Chronic obstructive pulmonary disease, unspecified COPD type Essential hypertension Mother CAD (coronary artery disease) Arthritis Ulcer Essential hypertension High cholesterol Mental health problem Grandfather History of heart attack Grandmother History of heart attack Grandfather History of heart attack Grandmother History of heart attack Social History marital status: household members: spouse Smoking Status: Former smoker alcohol intake: current substance use type: does not use Discharge Plan Discharge Plan Patient Disposition: Home Provider Discharge Comment: Patient can be discharged home after his stress test. Patient can restart his beta-fortunato after the stress test. Patient will follow-up with me in the clinic for review of echocardiogram and results of stress test Discharge orders & Medications Prescriptions: Continued acetaminophen 500 mg tablet 500 mg PO Q6H PRN (Reason: Pain (Scale Score 1-3)) RF: 0 folic acid 400 mcg tablet 0.4 mg PO DAILY RF: 0 omega-3 fatty acids [Fish Oil Concentrate] 1,000 mg capsule 1,000 mg PO DAILY RF: 0 cholecalciferol (vitamin D3) 50 mcg (2,000 unit) capsule 50 mcg PO BID RF: 0 famotidine [Acid Behavioral Health Rn (famotidine)] 20 mg tablet 10 mg PO DAILY RF: 0 melatonin 5 mg tablet 5 mg PO BEDTIME PRN (Reason: Insomnia) RF: 0 sildenafil (pulm.hypertension) 20 mg tablet 20 mg PO TID RF: 0 tamsulosin [Flomax] 0.4 mg capsule 0.8 mg PO QDAY Qty: 180 RF: 3 atorvastatin 80 mg tablet 80 mg PO HS Qty: 90 RF: 3 fluticasone propionate 50 mcg/actuation spray,suspension 1 spray Intranasal BID Qty: 47.4 RF: 3 losartan [Cozaar] 25 mg tablet 25 mg PO QDAY Qty: 90 RF: 3 celecoxib [Celebrex] 100 mg capsule 100 mg PO DAILY Qty: 90 RF: 3 bupropion HCl 100 mg tablet 100 mg PO TID Qty: 90 RF: 5 finasteride 5 mg tablet 5 mg PO DAILY Qty: 90 RF: 3 acyclovir 400 mg tablet 400 mg PO TID PRN (Reason: herpes outbreak) 7 Days Qty: 21 RF: 5 aspirin [Adult Aspirin Regimen] 81 mg tablet,delayed release (DR/EC) 81 mg PO BID RF: 0 ezetimibe 10 mg tablet 10 mg PO DAILY RF: 0 Discontinued metoprolol succinate [Toprol XL] 25 MG tablet extended release 24 hr 12.5 mg PO BID Qty: 0 RF: 0 Follow up/Referrals: Flex Dailey MD [Primary Care Provider] - Visit Report/Discharge Packet Visit Report Forms: Patient Portal/API, Stroke Signs & Symptoms Discharge Data Primary Care Provider: Flex Dailey Attending Provider: Flex Dailey Admit Date/Time: 01/08/21 02:29 Quality VTE Deep Vein Thrombosis/Pulmonary Embolism Present on Admission: No
[2021-01-08] MEDS: ATORVASTATIN 20 MG TABLET 80 MG PO (21:05)
[2021-01-08] MEDS: ENOXAPARIN 40 MG/0.4 ML SYRINGE SUBCUT (21:06)
--- NOTE | 2021-01-08 23:50 | PC.NURSE ---
Patient was stating has not slept yet. Asking for sleep aid. I told him he had nothing ordered for sleep, but that I would call his provider and try and get an order. he bacame upset, saying That is absurd! So you are going to call my doctor now? Explained that would be the only way to get an order for sleep. Just forget it then. reminded patient that if he changed his mind to just call and let me know.
[2021-01-09 05:29] VITALS: BP 137/83; PULSE 76; RESP 18; TEMP 36.2; O2SAT 96
[2021-01-09 07:37] VITALS: BP 144/97; PULSE 81; RESP 21; TEMP 36.4; O2SAT 95
--- NOTE | 2021-01-09 08:00 | DI.NM.S_ITS ---
PROCEDURE: NM BURAK PERF SPECT REST & STR Rest and exercise myocardial perfusion SPECT with gated imaging and ejection fraction RADIOPHARMACEUTICAL: 12.6 mCi Tc-99m sestamibi IV at rest and 26.7 mCi Tc-99m sestamibi IV at peak exercise. A two day-protocol was performed. INDICATIONS: chest pain TECHNIQUE: Radiopharmaceutical was injected at peak stress test, and also at rest. SPECT images were obtained. SPECT myocardial perfusion images were displayed in short axis, horizontal long axis, and vertical long axis views. Gated images were reviewed using [place] software. COMPARISON: None. CARDIAC STRESS: A standard Michael treadmill exercise tolerance test was performed by the patient under the supervision of an attending staff. The patient exercised for 7 minutes and 11 seconds; functional aerobic impairment (DOMINIC) is -11%. Hemodynamic data: There is normal blood pressure and heart rate response to exercise stress. Patient achieved 110% of maximum predicted heart rate at peak exercise. Symptoms: Patient denied chest pain during exercise. EKG: No diagnostic EKG changes of ischemia; no ectopy. FINDINGS: Raw data: There is good myocardial labeling by radiotracer. No significant motion artifacts. [id number] ratio is 0.21 (normal is less than 0.38 for sestamibi tracer, and less than 0.50 for thallium tracer). Left ventricle function: Gated images demonstrate normal left ventricle wall thickening. No segmental wall motion abnormality. No transient ischemic dilation; TID is 0.88 (normal less than 1.3). The left ventricle resting end-diastolic volume is 61 mL. Left ventricle stress ejection fraction is 93%; normal values are above 45%. Myocardial perfusion: There is a mildly intense fixed defect in the inferior wall that resolves with prone imaging, suggesting artifact than true ischemia or infarction. IMPRESSION: Low risk, normal treadmill nuclear stress test 1) No perfusion evidence of ischemia or infarction. 2) Normal left ventricular size, wall motion, and systolic function (EF post stress over-calculated at 93%). 3) No ECG evidence of ischemia. 4) No angina during the study. 5) Good exercise tolerance (8 METs, DOMINIC -11%). Target heart rate achieved. Appropriate BP response to exercise. 6) Compared to the nuclear stress test done 07/30/2017, no significant change. Dictated by: Sherlyn Murphy MD on 01/09/2021 at 16:29 Approved by: Sherlyn Murphy MD on 01/09/2021 at 16:33
[2021-01-09] MEDS: buPROPion 100 MG TABLET PO (09:59)
[2021-01-09] MEDS: ACETAMINOPHEN 325 MG TABLET 650 MG PO (09:59)
[2021-01-09] MEDS: TAMSULOSIN 0.4 MG CAPSULE 0.8 MG PO (09:59)
[2021-01-09] MEDS: LOSARTAN 25 MG TABLET PO (10:00)
[2021-01-09] MEDS: EZETIMIBE 10 MG TABLET PO (10:00)
[2021-01-09] MEDS: FINASTERIDE 5 MG TABLET PO (10:00)
[2021-01-09 11:15] VITALS: BP 125/70; PULSE 83; RESP 20; TEMP 37.1; O2SAT 95
--- NOTE | 2021-01-09 13:18 | PM.TREADMILL ---
Cardiac Stress Test Report Referral & Results Date Patient Seen: 01/09/21 Time Patient Seen: 13:18 Requesting provider: Flex Dailey Indication: chest pain Rest ECG: Sinus tachycardia Procedure Note: Standard Michael protocol, 7:11, 8 METS Good exercise capacity, DOMINIC-11% Normal hemodynamic response to exercise No chest pain or anginal symptoms No significant ST changes at peak exercise Rare PVC ectopy Impression: Normal exercise stress test Please note: Actual ECG tracings can be found in the PACS system.
--- NOTE | 2021-01-09 15:43 | PC.NURSE ---
Discharge: Pt completed both parts of stress test. Feels ready to d/c home. Has a base line c/p but has had no increase since admit. pt denies any concerns. D/c packet reviewed and understood. No new rx. Questions answered. Pt d/c home via auto w/.
== END 2021-01-09 15:45 | disposition home or self-care (01) ==
LOC: ED 01-08 02:30 → AC 01-08 02:31
PROVIDERS: Admitting Provider Internal Medicine; Emergency Provider Emergency Medicine; Family Provider Family Medicine; PCP Family Medicine; Referring Provider Emergency Medicine; Visit Provider Family Medicine
DX: R07.9 Chest pain, unspecified (principal); I25.10 Atherosclerotic heart disease of native coronary artery without angina pectoris; Z95.1 Presence of aortocoronary bypass graft; G10 Huntington's disease; F02.80 Dementia in other diseases classified elsewhere, unspecified severity, without behavioral disturbance, psychotic disturbance, mood disturbance, and anxiety; I10 Essential (primary) hypertension; I48.92 Unspecified atrial flutter; N40.0 Benign prostatic hyperplasia without lower urinary tract symptoms; G62.9 Polyneuropathy, unspecified; Z20.822 Contact with and (suspected) exposure to COVID-19
CPT/HCPCS: 36415; 71045; 78452; 80053; 80061; 82550; 82553; 83690; 83880; 84484; 85025; 85610; 85730; 87635; 93005; 93017; 93306; 96361; 96372; 96374; 99217; 99219; 99284; G0378; A9502; J1650

== ENCOUNTER → 2021-01-31 10:42 | Outpatient (CLI) | payer MEDICARE, SELFPAY ==
[2021-01-20 11:10] VITALS: BMI 22.1
[2021-01-31 11:29] LABS: COVID19 -Nasal RAPID Negative (Negative)
== END ==
PROVIDERS: Family Provider Family Medicine; PCP Family Medicine; Visit Provider Specialist
DX: Z20.822 Contact with and (suspected) exposure to COVID-19 (principal)
CPT/HCPCS: 87635; C9803

== ENCOUNTER 2021-02-03 06:36 | Observation (INO) | payer MEDICARE, SELFPAY ==
[2021-01-20 11:10] VITALS: BMI 22.1
[2021-01-28 09:54] VITALS: BMI 25.0
[2021-02-03] VITALS (19 sets, daily range): BP systolic 89–158; BP diastolic 50–92; PULSE 54–82; RESP 12–20; TEMP 35.6–37.1; O2SAT 94–100; BMI 25.0
--- NOTE | 2021-02-03 | PATH_ITS ---
[facility] Accession Number: [id number] . 01 Material submitted: . prostate - PROSTATE CHIPS . 02 Diagnosis: Prostate Chips, Transurethral Resection (Weight 7 grams): Benign prostatic tissue with glandular and stromal hyperplasia and patchy regions of chronic prostatitis. Negative for malignancy. MRV 02/10/2021 1618 Local . 02 Electronically signed: . Bev Reyna MD, Pathologist NPI- [id number] . 01 Gross description: . The specimen is received in formalin labeled prostate chips and consists of multiple gonsales partially cauterized fragments of soft tissue, measuring 5.0 x 5.0 x 2.0 cm in aggregate and weighing 7 grams. The specimen is entirely submitted in cassettes A1-A7. ([id number]) /[facility] 02/10/2021 1250 Local . 02 Pathologist provided ICD-10: N40.0 . 02 CPT . 402982 Performed at: 01 [facility] [address] [facility], [place], [place] [id number] MD Jacoby Heath MD Phone: [phone] Performed at: 02 [facility] [address] [place], [place] [id number] MD Anny Cortez MD Phone: [phone]
[2021-02-03] MEDS: LACTATED RINGERS 1,000 ML 42 ML IV (07:31)
--- NOTE | 2021-02-03 07:32 | PM.PREOP ---
Pre-operative Note Interval Note History & Physical reviewed/Exam performed by Physician: Yes Changes to H&P: No
[2021-02-03] MEDS: CEFAZOLIN 2 GM/100 ML FROZ.PIGGY IV (07:45)
--- NOTE | 2021-02-03 08:13 | SUR.OPER ---
Lithotomy on padded OR bed, head on pillow, arms secured on padded arm boards at <90 degrees abduction. Legs secured in padded yellow fins stirrups.
[2021-02-03] MEDS: BELLADONNA/OPIUM SUPPOSITORIES 1 EACH PR (08:29)
--- NOTE | 2021-02-03 09:05 | P.OP_ITS ---
Operative Date/Time/Diagnoses Date of procedure: 02/03/21 Time of procedure: 09:05 Pre-op diagnosis: Benign prostate hyperplasia Post-op diagnosis: same Procedure & Clinicians Procedure: Transurethral resection of prostate Same procedure as scheduled: Yes Indications: Benign prostate hyperplasia Surgeon: Mildred Simms Click Yes if Unassisted: Yes Anesthesia Type: Spinal Operative Notes Findings: 1. Urethra-normal caliber without stricture or lesion. 2. External sphincter-coapted 3. Prostate-4 cm length with moderate lateral lobe hyperplasia and elevated median bar. 4. Bladder-1 to 2+ trabeculation. Normal ureteral orifices bilaterally. There is a shallow wide-mouth diverticulum at the low right posterior wall. No stones or suspicious lesions. Closure Type: not applicable Specimen(s): other (Prostate chips) Applied: catheter (#24F 3 way to normal saline CBI) Estimated Blood Loss (mL): 5 Blood products transfused: none Procedure in detail: Following successful placement of spinal anesthetic the patient was positioned in supine. He was then repositioned semilithotomy and the lower abdomen, groin, and genitalia were prepped and draped in sterile fashion. The 25 [place] Islander resectoscope was then advanced and lower urinary tract with findings as described above. Resection of the prostate was conducted by 1st making incisions at the 11 and 1:00 a.m. positions anteriorly. The intervening anterior tissue was then resected. Next the left and right lateral lobes were resected from the bladder neck to the verumontanum. Now resection of the median bar was undertaken again from the bladder neck to verumontanum. At no point was resection taken beyond the verumontanum nor deeper than the surgical capsule. Kissing apical tissue was intentionally unresected adjacent to the verumontanum on either side. Hemostasis was attained with electrocautery. All chips were removed from the bladder and prostatic fossa with hydrostatic irrigation or mechanical removal. The bladder was then left partially filled and the resectoscope was removed. A 24 Solomon Islander, 3 way Pickett catheter was then inserted into the lower urinary tract, and the balloon was inflated to 30 cc. The catheter was then hand irrigated and was clear. The catheter was then attached to normal saline continuous bladder in flow and reservoir bag was attached to the outflow. The patient was then repositioned in supine, and was transferred to a reastover for preparation for transport to PACU. Complications: none Post-operative Condition: stable Disposition: PACU Plan for aftercare: Acute care
--- NOTE | 2021-02-03 10:25 | SUR.PHASEI ---
CBI output: clear fluid. total 5,900 ML from CBI out. 100ml of 2nd bag wasted.
--- NOTE | 2021-02-03 10:30 | PC.NURSE ---
Day shift: Pt on unit from PACU at approx 1030. Pickett emtied and 2 new bags (4000ml total) hung for CBI. His Pickett output is clear at this time. Pickett fluids looks like NS. He is A&Ox4. Denies any pain or nausea. He can move his BLE's but has no sensation at this time. Pickett is patent and secured to his rt thigh. Per report he had an epidural. His VS WNL. PPP. Sheet started to keep track of CBI ins and outs. MARKY Aden is aware.
[2021-02-03] MEDS: LACTATED RINGERS 1,000 ML 125 ML IV ×2 (10:44→19:00)
--- NOTE | 2021-02-03 12:32 | PC.NURSE ---
Day shift: Pickett output is very light pink. Pt denies any pain. Ate lunch w/ no c/o nausea. Can't feel toes but can feel ankles. SpO2 100% RA. Pt's spouse in room for approx 1 hour for support. Pickett CBI as ordered and progressing well. Will continue w/ plan of care.
[2021-02-03] MEDS: OXYCODONE IR 5 MG TABLET PO ×3 (12:55→20:54)
[2021-02-03] MEDS: ACETAMINOPHEN 325 MG TABLET 650 MG PO ×2 (12:55→16:36)
[2021-02-03] MEDS: ASPIRIN EC 81 MG TABLET PO (20:52)
[2021-02-03] MEDS: ATORVASTATIN 20 MG TABLET 80 MG PO (20:52)
[2021-02-03] MEDS: buPROPion 100 MG TABLET PO (20:53)
[2021-02-03] MEDS: FAMOTIDINE 20 MG TABLET 40 MG PO (20:53)
[2021-02-03] MEDS: EZETIMIBE 10 MG TABLET PO (20:53)
[2021-02-03] MEDS: MELATONIN 3 MG TABLET 6 MG PO (20:53)
[2021-02-03] MEDS: METOPROLOL ER 25 MG TABLET 12.5 MG PO (20:53)
[2021-02-03] MEDS: FLUTICASONE 120 SPRAY/16 GM SPRAY.SUSP NASAL (20:53)
[2021-02-03] MEDS: DOCUSATE 100 MG CAPSULE PO (21:27)
[2021-02-03] MEDS: HYDROMORPHONE 0.5 MG INJ IV (22:22)
[2021-02-04 00:05] VITALS: BP 134/76; PULSE 69; RESP 18; TEMP 36.7; O2SAT 99
[2021-02-04] MEDS: ACETAMINOPHEN 325 MG TABLET 650 MG PO ×2 (00:26→04:09)
[2021-02-04] MEDS: OXYCODONE IR 5 MG TABLET PO ×3 (00:26→17:05)
[2021-02-04] MEDS: LACTATED RINGERS 1,000 ML 125 ML IV (03:19)
[2021-02-04 05:13] VITALS: BP 133/79; PULSE 73; RESP 18; TEMP 36.9; O2SAT 92
--- NOTE | 2021-02-04 07:37 | PM.PN.1 ---
Subjective Subjective Date Patient Seen: 02/04/21 Time Patient Seen: 07:37 Interval history: Patient is postoperative day 1. Status post transurethral resection of the prostate. He has had some complaints of pain at the region of the distal urethra and glans. Discomfort has been well managed with oral analgesics and acetaminophen. He is otherwise without complaint is tolerating p.o.. Exam Vital Signs (past 8 hours): - 02/04/21 00:05 02/04/21 05:13 Temperature 98.0 F 98.5 F Pulse Rate 69 73 Respiratory Rate 18 18 Blood Pressure 134/76 133/79 Pulse Oximetry 99 92 Oxygen Delivery Method Room Air Oxygen Flow Rate 0 Narrative Exam Narrative: He is resting comfortably in bed and in no distress. Abdomen nondistended and flat. Pickett has light pink, nearly clear output at minimal of irrigation rate. [facility] Medical History (Updated 01/23/21 @ 13:57 by Flex Dailey MD) Actinic keratosis (~2011) Anxiety Atrial fibrillation (~03/2016) Carpal tunnel syndrome (~2003) Chicken pox (~1956) Chronic back pain (~1985) DDD (degenerative disc disease), lumbar Depression Family history of [place]'s chorea GERD (gastroesophageal reflux disease) (~1983) Hay fever (~1969) Herpes (~1987) Hyperlipidemia (~1989) Hypertension (~1983) Measles (~1959) Mumps (~1960) Nocturia Osteoarthritis (~1984) Psoriasis (~2009) Psoriatic arthritis Seasonal allergies (~1969) Shoulder pain Sore of lower lip (~2009) Surgical History (Updated 01/28/21 @ 10:02 by Nat Ryan RN) Anesthesia History of carpal tunnel repair History of hip replacement (~09/2010) History of knee replacement (~08/2014) History of third molar tooth extraction (~07/2010) History of tonsillectomy (~1949) History of vasectomy (~1983) Status post arthroscopy (~1961) Status post arthroscopy (~12/2009) Status post arthroscopy (~07/2009) 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) Status post knee surgery (~1971) Trigger finger Family History Brother Age: 71 BPH (benign prostatic hypertrophy) Brother Age: 69 Essential hypertension Father Huntingtons chorea Chronic obstructive pulmonary disease, unspecified COPD type Essential hypertension Mother CAD (coronary artery disease) Arthritis Ulcer Essential hypertension High cholesterol Mental health problem Grandfather History of heart attack Grandmother History of heart attack Grandfather History of heart attack Grandmother History of heart attack Social History marital status: household members: spouse Smoking Status: Former smoker alcohol intake: current substance use type: does not use Assessment & Plan Assessment & Plan narrative: Assessment: 1. Stable postoperative day 1. Status post transurethral resection of prostate. Plan: 1. DC Pickett and conduct voiding trial. 2. Pathology pending.
[2021-02-04] MEDS: FLUTICASONE 120 SPRAY/16 GM SPRAY.SUSP NASAL (09:16)
[2021-02-04] MEDS: FINASTERIDE 5 MG TABLET PO (09:18)
[2021-02-04] MEDS: FOLIC ACID 0.4 MG TABLET PO (09:19)
[2021-02-04] MEDS: LOSARTAN 25 MG TABLET 12.5 MG PO (09:19)
[2021-02-04] MEDS: buPROPion 100 MG TABLET PO ×2 (09:19→14:21)
[2021-02-04] MEDS: METOPROLOL ER 25 MG TABLET 12.5 MG PO (09:20)
[2021-02-04] MEDS: FAMOTIDINE 20 MG TABLET 40 MG PO (09:20)
[2021-02-04] MEDS: CELECOXIB 100 MG CAPSULE PO (09:20)
[2021-02-04] MEDS: TAMSULOSIN 0.4 MG CAPSULE 0.8 MG PO (09:20)
[2021-02-04] MEDS: HYDROMORPHONE 0.5 MG INJ IV ×2 (09:20→16:12)
[2021-02-04 09:25] VITALS: BP 121/62; PULSE 68; RESP 16; TEMP 36.3; O2SAT 96
--- NOTE | 2021-02-04 09:55 | PC.NURSE ---
Day shift: Dr Simms ordered Pickett d/c this AM and it was removed at approx 0830. It was painfull for Pt on removal and IV Dilaudid was given per DEC. Pain is better now (10/20) and awaiting Pt to void. Pt knows the plan today that he needs to void and have a small amount of urine in bladder after he voids. Encouraged to drink extra water and he is doing that now. No nausea and no chest pain. Pt stated he will call staff when he needs to void. Call light in reach. Will continue w/ plan of care.
[2021-02-04 10:05] VITALS: PULSE 68
--- NOTE | 2021-02-04 10:24 | PC.NURSE ---
Day shift: Pt OOB and to BR SBA to void. He voided approx 75mls urine and blood mix. Pt did state he was a little light headed. Encouraged to take deep breaths. BAck in bed now and will bladder scan shortly. Bladder scan 200mls. Will continue to encourage PO intake. Pt aware of the plan. Pt agrees to not get OOB w/o help from staff. Pain reported 1/10 at this time. Call light in reach.
[2021-02-04 11:12] VITALS: BP 162/94; PULSE 69; RESP 18; TEMP 36.4; O2SAT 99
--- NOTE | 2021-02-04 11:33 | CM.DANOTE ---
Discharge Planning/Care Management DCP: assessment: case received, EMR reviewed and met with pt. Introduced self and role. Pt is a 75 year old male who admitted yesterday for a scheduled TURP. Payer: [facility]. Surgeon: Dr. Lenora Alcala PCP: Dr. Millie Dailey. Pt is found in bed, appears queasy and admits to same. Emesis bag at bedside. Pt and his RN Mary Lou both confirm that the mesa catheter is removed and pt is currently on a voiding trial which thus far he has not passed. Pt says his Jeanie is just standing by in our garden to see it he will be ok for home today or will need to stay longer. P: is home when stable for same. CM Discharge Assessment Start: 02/04/21 11:32 Freq: Status: Active Protocol: Document 02/04/21 11:32 ITV (Rec: 02/04/21 11:33 ITV [id number]) Discharge Planning Assessment Advance Directives? Yes Advance Directives on File Yes History Provided By Patient,Medical Record Prior Living Arrangements House Household Members spouse Comment spouse: Jeanie Butts Independent with ADL's Yes Is patient alert and oriented? Yes Discharge Plan Home Transportation Arrangement Spouse Jeanie Review Status In Process Pre-Anesthesia Assessment Start: 01/28/21 09:54 Freq: Status: Complete Protocol: Document 01/28/21 09:54 CAB (Rec: 01/28/21 10:52 CAB [id number]) Pre-Anesthesia Assessment Preferred Name Dean Patient Information Reviewed Via Phone Assessment Assessment Completed With Patient,Spouse Comment COVID screen @ 01/31/21 Primary Care Provider Flex Dailey Seen Specialist in Last 12 Months Yes Specialist Seen Samples And Repairs Preparer,Emergency, Urologist Primary Language Citizen [place] Preferred Language [place] Height 170.18 cm Weight 72.575 kg Body Mass Index (BMI) 25.0 Hearing Ability Normal Visual Assist Glasses Dentition Type Teeth, Natural Present,Teeth, Missing Barriers to Learning None Hx Anesthesia Reactions Yes: Slow to recover, pass out, low blood pressure Hx Family Anesthesia Reaction No Hx Malignant Hyperthermia No Hx Blood Transfusions No Anesthesia Review Requested No Brooch And Bracelet Maker No alcohol intake current alcohol intake frequency a few times a week Smoking Status Former smoker how long ago did patient quit smoking Quit 1983 Substance Use Type does not use Pain Present Pain Reported Comment Left knee, low back, hands Musculoskeletal Symptoms Back Pain,Joint Pain,Neck Pain History of Falling (Recent or History of No ) Patient is completely paralyzed or No completely immobile Mental Status Oriented to own ability Is patient on oxygen? No Does patient have GUZMAN/SOB No Hx Sleep Apnea No Currently Taking a Beta Shady Yes: Metoprolol Can You Climb a Flight of Stairs Without Yes SOB Hx Chest Pain Yes: Recently admitted to - cardiac w/u negative Hx SOB No Hx Syncope or Dizziness Yes: Syncopal episodes, last 2009 Anti-Coagulant Therapy Yes: ASA 81mg BID-hold 5 days prior per Cardiology Has a Samples And Repairs Preparer Yes: Dr. Rios Cardiac Testing Yes: Echo @ [facility] 01/08/21, Perfusion scan 01/09/21 Hx Pacemaker/ICD No Pacemaker Rep Required? No Cardiac Clearance Received Yes Comment Cardiac records scanned to record Diet Type At Home Other dysphagia Yes: Esophagel dismotility Gastrointestinal Symptoms Constipation,Reflux Genitourinary Symptoms Dribbling Bladder Pattern Frequency,Urgency Urinary Catheter Present No Hx Urinary Self Catheterization No Diabetes No Hx Drug Resistant Organism No Presence of External or Internal Medical Yes: Sternal wires r/t CABG, Devices right hip, left knee hardware Have you had any close contact with No someone diagnosed with COVID-19? Marital Status Lives With spouse Prior Living Arrangements House Number of Floors (Floors) One Floor Support System Spouse Does the Patient Have Assistance After Yes Surgery Patient Discharge Plan Description Return Home Comment Pt advised 1-2 night length of stay per surgeon Feels Safe in Current Environment Yes Been Physically Hurt or Threatened By a No Person in Current Environment Do you have thoughts of harming yourself None or others? Are you currently considering suicide? No Do you have a plan to hurt yourself or No Plan others? Do You Have Any Spiritual Beliefs That No May Affect Your HC Choices? Do You Have Any Cultural Practices That No May Affect Your HC Choices? Who Can We Speak to About Patient's Care Family, friends Identifying Code for Release of Patient Declines to issue Information Health Care Proxy/Next of Kin Jeanie () Health Care Proxy Emergency Contact Name Jeanie () Emergency Contact Advance Directives? Yes Advance Directives on File Yes Requested Patient Bring Advanced Yes Directives DOS Power of Librarian Special Library Yes Power of Librarian Special Library Name Jeanie Butts () Power of Librarian Special Library PAC Instructions Medications to take/avoid,No ETOH/petroleum product on skin DOS,Pre-surgical wash,Sturdy shoes/comfortable clothes,Do not bring valuables and remove jewelry
[2021-02-04] MEDS: ONDANSETRON 4 MG/2 ML INJ IV (12:39)
[2021-02-04 15:30] VITALS: BP 133/80; PULSE 81; RESP 17; TEMP 36.8; O2SAT 96
--- NOTE | 2021-02-04 17:23 | PM.DS.1 ---
History of Present Illness History of Present Illness Date Patient Seen: 02/04/21 Time Patient Seen: 17:23 Chief complaint: OPB Narrative: The patient is a 75-year-old white male admitted on 02/03/2021 for schedule transurethral resection of prostate for dissatisfaction and failure of medical therapy. Discharge Providers Provider Date of admission: 02/03/21 06:36 Discharge Date: 02/04/21 Primary care physician: Flex Dailey MD Discharge provider: Mildred Simms MD Summary Hospital Course Discharge Diagnosis: 1. BPH Hospital Course: Patient was admitted on the morning of 02/03/2021 and underwent uncomplicated transurethral resection of the prostate under spinal anesthetic. The postoperative course was unremarkable in that he tolerated a general diet was able to ambulate without assistance. Postoperative discomfort was managed readily with acetaminophen in oral narcotic analgesic at low dosage. On the morning of the 1st postoperative day urine outflow was clear to light pink at a very minimal inflow irrigation rate. Therefore, voiding trial was conducted. Unfortunately the patient affectively failed a trial. He was able to void small, 50-75 cc amounts on a frequent basis but did residual volume slowly increased as the day went on. Decision was made to replace the Pickett catheter and a 20 Citizen Of [place] coude catheter was selected. Exam Vital Signs (past 8 hours): - 02/04/21 09:25 02/04/21 10:05 02/04/21 11:12 Temperature 97.3 F L 97.6 F Pulse Rate 68 68 69 Respiratory Rate 16 18 Blood Pressure 121/62 162/94 H Pulse Oximetry 96 99 02/04/21 15:30 Temperature 98.2 F Pulse Rate 81 Respiratory Rate 17 Blood Pressure 133/80 Pulse Oximetry 96 Oxygen Delivery Method Room Air Oxygen Flow Rate 0 PFSH Medical History Actinic keratosis (~2011) Anxiety Atrial fibrillation (~03/2016) Carpal tunnel syndrome (~2003) Chicken pox (~1956) Chronic back pain (~1985) DDD (degenerative disc disease), lumbar Depression Family history of [place]'s chorea GERD (gastroesophageal reflux disease) (~1983) Hay fever (~1969) Herpes (~1987) Hyperlipidemia (~1989) Hypertension (~1983) Measles (~1959) Mumps (~1960) Nocturia Osteoarthritis (~1984) Psoriasis (~2009) Psoriatic arthritis Seasonal allergies (~1969) Shoulder pain Sore of lower lip (~2009) Surgical History Anesthesia History of carpal tunnel repair History of hip replacement (~09/2010) History of knee replacement (~08/2014) History of third molar tooth extraction (~07/2010) History of tonsillectomy (~1949) History of vasectomy (~1983) Status post arthroscopy (~1961) Status post arthroscopy (~12/2009) Status post arthroscopy (~07/2009) 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) Status post knee surgery (~1971) Trigger finger Family History Brother Age: 71 BPH (benign prostatic hypertrophy) Brother Age: 69 Essential hypertension Father [place]tons chorea Chronic obstructive pulmonary disease, unspecified COPD type Essential hypertension Mother CAD (coronary artery disease) Arthritis Ulcer Essential hypertension High cholesterol Mental health problem Grandfather History of heart attack Grandmother History of heart attack Grandfather History of heart attack Grandmother History of heart attack Social History marital status: household members: spouse Smoking Status: Former smoker alcohol intake: current substance use type: does not use Discharge Assessment & Plan Assessment and Plan Assessment: 1. Stable postoperative day 1. Status post transurethral resection of the prostate. 2. Failed initial voiding trial on 1st postoperative day. Plan of Treatment: 1. Discharge home with replaced Pickett catheter. 2. Conducted outpatient voiding trial at [facility]. 3. Pathology pending-review by phone when final. Discharge Plan Discharge Plan Patient Disposition: Home Provider Discharge Comment: Call urology clinic to arrange outpatient voiding trial. Discharge orders & Medications Prescriptions: New oxycodone 5 mg tablet 5 mg PO Q6H PRN (Reason: pain) Qty: 14 RF: 0 Continued acetaminophen 500 mg tablet 500 mg PO Q6H PRN (Reason: Pain (Scale Score 1-3)) RF: 0 folic acid 400 mcg tablet 0.4 mg PO DAILY RF: 0 omega-3 fatty acids [Fish Oil Concentrate] 1,000 mg capsule 1,000 mg PO DAILY RF: 0 cholecalciferol (vitamin D3) 50 mcg (2,000 unit) capsule 50 mcg PO DAILY RF: 0 famotidine [Acid Cushion Padder (famotidine)] 20 mg tablet 40 mg PO BID RF: 0 melatonin 5 mg tablet 5 mg PO BEDTIME PRN (Reason: Insomnia) RF: 0 sildenafil (pulm.hypertension) 20 mg tablet 20 mg PO DAILY PRN (Reason: Sexual Activity) RF: 0 atorvastatin 80 mg tablet 80 mg PO HS Qty: 90 RF: 3 celecoxib [Celebrex] 100 mg capsule 100 mg PO DAILY Qty: 90 RF: 3 finasteride 5 mg tablet 5 mg PO DAILY Qty: 90 RF: 3 acyclovir 400 mg tablet 400 mg PO TID PRN (Reason: herpes outbreak) 7 Days Qty: 21 RF: 5 fluticasone propionate 50 mcg/actuation spray,suspension 1 spray Intranasal BID Qty: 47.4 RF: 3 tamsulosin [Flomax] 0.4 mg capsule 0.8 mg PO QDAY Qty: 180 RF: 3 bupropion HCl 100 mg tablet 100 mg PO TID Qty: 90 RF: 5 aspirin [Adult Aspirin Regimen] 81 mg tablet,delayed release (DR/EC) 81 mg PO BID RF: 0 losartan [Cozaar] 25 mg tablet 12.5 mg PO QDAY RF: 0 metoprolol succinate 25 mg Tablet Extended Release 24 Hr 12.5 mg PO BID RF: 0 ezetimibe 10 mg tablet 10 mg PO DAILY RF: 0 No Action cephalexin 500 mg capsule 500 mg PO TID Qty: 10 RF: 0 Follow up/Referrals: Flex Dailey MD [Primary Care Provider] - Diet/Activity/Treatments Diet: Diet as Tolerated Activity: No lifting greater than 15 lb or bike riding x4 weeks Catheter: 2-way Pickett Skin/Wound/Dressing Care Report to your healthcare provider any signs of infection, such as:: chills, fever, increased pain and unusual drainage Visit Report/Discharge Packet Instructions: How to Care for Your Pickett Catheter -- Male, DI for Transurethral Resection of the Prostate, DI for Prescription Opioid Use Stand Alone Forms: Surgery Discharge Discharge Data Primary Care Provider: Flex Dailey Attending Provider: Mildred Simms
--- NOTE | 2021-02-04 19:30 | PC.NURSE ---
Discharge Note Patient A&O, VSS, RA. Complaints of slight discomfort to penile area. Telephone order from Dr Simms to replace mesa catheter due to retention post mesa catheter removal. Patient agreeable to plan. Patient pre-medicated with IV Dilaudid prior to placement. 20F coude placed per order with minimal resistance. Bright red urinary return upon insertion, 500cc out, mesa attached to bag. Home mesa catheter care reviewed and practiced with patient and with this RN. Switching of overnight bag and leg bag practiced with patient and . Home supplies given to patient and . All questions/concerns addressed. Reminded patient to cotton picking machine operator prescriptions on way home. PIV discontinued. This RN helped patient into pants and teaching done on feeding bag through pant leg. All belonging packed and given to along with discharge packet. Patient taken down via wheelchair to POV.
== END 2021-02-04 18:15 | disposition home or self-care (01) ==
LOC: OR 06:38 → AC 06:39
PROVIDERS: Admitting Provider Specialist; Family Provider Family Medicine; PCP Family Medicine; Referring Provider Family Medicine; Visit Provider Specialist
PROC: 0VT08ZZ Resection of Prostate, Via Natural or Artificial Opening Endoscopic (ICD-10-PCS; CPT 52601; principal; 2021-02-03 07:45)
DX: N40.1 Benign prostatic hyperplasia with lower urinary tract symptoms (principal); R35.0 Frequency of micturition; R35.1 Nocturia; Z95.1 Presence of aortocoronary bypass graft; I25.10 Atherosclerotic heart disease of native coronary artery without angina pectoris; K21.9 Gastro-esophageal reflux disease without esophagitis
CPT/HCPCS: 52601; 36415; 94762; G0378; A9270; J0690; J1170; J2250; J2405; J3010

== ENCOUNTER 2021-02-06 10:34 | Emergency (ER) | payer MEDICARE, SELFPAY ==
[2021-02-03 10:52] VITALS: BMI 25.0
[2021-02-06] VITALS (8 sets, daily range): BP systolic 114–138; BP diastolic 60–85; PULSE 71–104; RESP 15–52; TEMP 37.2; O2SAT 94–98; BMI 23.8
--- NOTE | 2021-02-06 11:11 | PC.NURSE ---
patient was about to get his mesa catheter out. He took his oxycodone and tyelenol in fear that his cath removal would hurt. After he took his meds he became nauseated and was not able to eat breakfast. When he was finished getting it removed, he passed out.
--- NOTE | 2021-02-06 12:40 | PC.NURSE ---
patient passed about 100mls of brownish red urine and a few small clots. Feels no residual in bladder. He was ambulated with no lightheadedness and no major blood pressure changes
--- NOTE | 2021-02-06 13:23 | ED_ITS ---
HPI - General Adult General Chief complaint: Syncope Stated complaint: fainted, low BP, high HR Time Seen by Provider: 02/06/21 10:51 Source: patient Mode of arrival: Wheelchair Limitations: no limitations History of Present Illness HPI narrative: 75-year-old gentleman with a history of TUR on 02/03. He had a Pickett catheter placed on 02/04 after he was unable to void. Was in the urology office this morning to have the catheter removed and had a vasovagal episode. You are able to watch him for approximately 45 minutes but he remained quite symptomatic so they requested that he come to the emergency department for further evaluation. Additional medical problems include atrial fibrillation hypertension, hyperlipidemia as well as anxiety. On arrival in the emergency department he is alert, appropriate and able to answer all questions. Related Data Home Medications Medication Instructions Recorded Confirmed aspirin 81 mg tablet,delayed 81 mg PO BID tab 11/09/18 02/03/21 release acetaminophen 500 mg tablet 500 mg PO Q6H PRN 05/02/20 02/03/21 cholecalciferol (vitamin D3) 50 50 mcg PO DAILY cap 05/02/20 02/03/21 mcg (2,000 unit) capsule famotidine 20 mg tablet 40 mg PO BID 05/02/20 02/03/21 folic acid 400 mcg tablet 0.4 mg PO DAILY 05/02/20 02/03/21 melatonin 5 mg tablet 5 mg PO BEDTIME PRN 05/02/20 02/03/21 omega-3 fatty acids 1,000 mg 1,000 mg PO DAILY 05/02/20 02/03/21 capsule sildenafil (pulm.hypertension) 20 20 mg PO DAILY PRN 05/02/20 01/28/21 mg tablet ezetimibe 10 mg PO DAILY 01/08/21 02/03/21 losartan [Cozaar] 12.5 mg PO QDAY 01/28/21 02/03/21 metoprolol succinate 12.5 mg PO BID 01/28/21 02/03/21 Previous Rx's Medication Instructions Recorded atorvastatin 80 mg tablet 80 mg PO HS #90 tab 11/08/19 celecoxib 100 mg capsule 100 mg PO DAILY #90 cap 11/13/19 acyclovir 400 mg tablet 400 mg PO TID PRN 7 Days #21 tab 11/13/20 finasteride 5 mg tablet 5 mg PO DAILY #90 tab 11/13/20 fluticasone propionate 50 1 spray INTRANASAL BID #47.4 ml 01/14/21 mcg/actuation nasal spray,suspension tamsulosin 0.4 mg capsule 0.8 mg PO QDAY #180 cap 01/15/21 bupropion HCl 100 mg tablet 100 mg PO TID #90 tab 02/04/21 cephalexin 500 mg capsule 500 mg PO TID #10 cap 02/04/21 oxycodone 5 mg PO Q6H PRN #14 tab 02/04/21 Allergies Allergy/AdvReac Type Severity Reaction Status Date / Time Sulfa (Sulfonamide Allergy Severe rash and Verified 01/23/21 11:57 Antibiotics) itching [SULFA (SULFONAMIDE ANTIBIOTICS)] Review of Systems Review of Systems ROS Unobtainable: All systems reviewed & are unremarkable except as noted in HPI and below Patient History Medical History Actinic keratosis (~2011) Anxiety Atrial fibrillation (~03/2016) Carpal tunnel syndrome (~2003) Chicken pox (~1956) Chronic back pain (~1985) DDD (degenerative disc disease), lumbar Depression Family history of Dixon's chorea GERD (gastroesophageal reflux disease) (~1983) Hay fever (~1969) Herpes (~1987) Hyperlipidemia (~1989) Hypertension (~1983) Measles (~1959) Mumps (~1960) Nocturia Osteoarthritis (~1984) Psoriasis (~2009) Psoriatic arthritis Seasonal allergies (~1969) Shoulder pain Sore of lower lip (~2009) Surgical History Anesthesia History of carpal tunnel repair History of hip replacement (~09/2010) History of knee replacement (~08/2014) History of third molar tooth extraction (~07/2010) History of tonsillectomy (~1949) History of vasectomy (~1983) Status post arthroscopy (~1961) Status post arthroscopy (~12/2009) Status post arthroscopy (~07/2009) 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) Status post knee surgery (~1971) Trigger finger Family History Brother Age: 71 BPH (benign prostatic hypertrophy) Brother Age: 69 Essential hypertension Father Umang chorea Chronic obstructive pulmonary disease, unspecified COPD type Essential hypertension Mother CAD (coronary artery disease) Arthritis Ulcer Essential hypertension High cholesterol Mental health problem Grandfather History of heart attack Grandmother History of heart attack Grandfather History of heart attack Grandmother History of heart attack Social History marital status: household members: spouse Smoking Status: Former smoker alcohol intake: current substance use type: does not use Smoking Status: Former smoker alcohol intake frequency: a few times a week Substance Use Type: does not use Exam Narrative Exam Narrative: General: Healthy appearing, in no acute distress. Able to give a complete and coherent history. Well-nourished well-developed HEENT: Moist mucous membranes, normal sclera with reactive pupils, Respiratory: Lungs are clear to auscultation, no wheezing no rales no rhonchi. Full and symmetrical air movement Cardiac: Regular rate and rhythm no murmurs no bruits Abdomen: Soft, nontender, good bowel tones, no flank pain Skin: Warm and dry, no rashes Neurologic: Grossly neurologically intact with no obvious asymmetries or abnormalities Extremities: No trauma, well perfused Psych: Cooperative, appropriate insight and affect Initial Vital Signs Initial Vital Signs: Vital Signs Temperature 98.9 F 02/06/21 10:40 Pulse Rate 71 02/06/21 10:40 Respiratory Rate 16 02/06/21 10:40 Blood Pressure 138/78 02/06/21 10:40 Pulse Oximetry 98 02/06/21 10:40 Course Orders Ordered: ED Orders 02/06/21 10:39 EKG-12 Lead Routine Vital Signs Vital signs: Vital Signs - 8 hr 02/06/21 10:40 02/06/21 11:26 02/06/21 11:44 Temperature 98.9 F Pulse Rate 71 104 H 71 Respiratory Rate 16 15 17 Blood Pressure 138/78 114/64 Pulse Oximetry 98 96 96 02/06/21 12:00 02/06/21 12:01 02/06/21 12:30 Temperature Pulse Rate 74 74 87 Respiratory Rate 24 20 24 Blood Pressure 129/60 115/85 Pulse Oximetry 94 95 96 02/06/21 12:38 04/29/21 13:00 Temperature Pulse Rate 89 78 Respiratory Rate 52 H 31 H Blood Pressure 124/81 Pulse Oximetry 96 Medical Decision Making Medical Records Medical records reviewed: Yes I reviewed the patient's medical records. ECG Data Attestation: I personally reviewed and interpreted this ECG as follows: Interpretation: Sinus rhythm at a rate of 65 Normal intervals, normal axis No acute ischemic changes MDM Narrative Medical decision making narrative: 75-year-old gentleman who is now 4 days post TUR doing well, able to void with Pickett catheter out. Had a basal vagal reaction in the urology office (he notes that he has had these episodes frequently with any types of procedures) and is brought to the emergency room for further evaluation. On arrival in the emergency room his blood pressure is already coming up his color is good. Nausea has resolved. He is given some juice and some food and observed for an hour. He is able to stand up without any tachycardia or hypotension and is able to void clear yellow urine without any difficulties. He is safe for home discharge Discharge Plan Departure Patient Disposition: Home Clinical Impression: Vaso-vagal reaction Instructions: DI for Syncope in Adults (Fainting) Activity Restrictions/Additional Instructions: Thank you for coming in today You had a vasovagal reaction with your Pickett catheter removal. Your body has recovered nicely and there is no evidence of any further issues. You have been able to void without difficulty and it is safe to go home with out a Pickett catheter in place. I hope the rest of your surgical recovery goes well. Prescriptions: No Action acetaminophen 500 mg tablet 500 mg PO Q6H PRN (Reason: Pain (Scale Score 1-3)) RF: 0 folic acid 400 mcg tablet 0.4 mg PO DAILY RF: 0 omega-3 fatty acids [Fish Oil Concentrate] 1,000 mg capsule 1,000 mg PO DAILY RF: 0 cholecalciferol (vitamin D3) 50 mcg (2,000 unit) capsule 50 mcg PO DAILY RF: 0 famotidine [Acid Independent Insurance Adjuster (famotidine)] 20 mg tablet 40 mg PO BID RF: 0 melatonin 5 mg tablet 5 mg PO BEDTIME PRN (Reason: Insomnia) RF: 0 sildenafil (pulm.hypertension) 20 mg tablet 20 mg PO DAILY PRN (Reason: Sexual Activity) RF: 0 atorvastatin 80 mg tablet 80 mg PO HS Qty: 90 RF: 3 celecoxib [Celebrex] 100 mg capsule 100 mg PO DAILY Qty: 90 RF: 3 finasteride 5 mg tablet 5 mg PO DAILY Qty: 90 RF: 3 acyclovir 400 mg tablet 400 mg PO TID PRN (Reason: herpes outbreak) 7 Days Qty: 21 RF: 5 fluticasone propionate 50 mcg/actuation spray,suspension 1 spray Intranasal BID Qty: 47.4 RF: 3 tamsulosin [Flomax] 0.4 mg capsule 0.8 mg PO QDAY Qty: 180 RF: 3 bupropion HCl 100 mg tablet 100 mg PO TID Qty: 90 RF: 5 cephalexin 500 mg capsule 500 mg PO TID Qty: 10 RF: 0 aspirin [Adult Aspirin Regimen] 81 mg tablet,delayed release (DR/EC) 81 mg PO BID RF: 0 losartan [Cozaar] 25 mg tablet 12.5 mg PO QDAY RF: 0 metoprolol succinate 25 mg Tablet Extended Release 24 Hr 12.5 mg PO BID RF: 0 oxycodone 5 mg tablet 5 mg PO Q6H PRN (Reason: pain) Qty: 14 RF: 0 ezetimibe 10 mg tablet 10 mg PO DAILY RF: 0 Referrals: Flex Dailey MD [Primary Care Provider] -
== END 2021-02-06 13:43 | disposition home or self-care (01) ==
PROVIDERS: Emergency Provider Emergency Medicine; Family Provider Family Medicine; PCP Family Medicine
DX: R55 Syncope and collapse (principal)
CPT/HCPCS: 36415; 51798; 93005; 99283

== ENCOUNTER → 2021-03-19 10:06 | Outpatient (CLI) | payer MEDICARE, SELFPAY ==
[2021-02-03 10:52] VITALS: BMI 25.0
[2021-03-19 12:13] LABS: Prostate Specific Antigen 1.01 ng/mL (0.10-4.00)
== END ==
PROVIDERS: Specialist; Family Provider Family Medicine; PCP Family Medicine; Referring Provider Family Medicine; Visit Provider Family Medicine
DX: N40.0 Benign prostatic hyperplasia without lower urinary tract symptoms (principal)
CPT/HCPCS: 36415; 84153

== ENCOUNTER → 2021-03-27 11:30 | Outpatient (CLI) | payer MEDICARE, SELFPAY ==
[2021-02-03 10:52] VITALS: BMI 25.0
== END ==
PROVIDERS: Family Provider Family Medicine; PCP Family Medicine; Visit Provider Specialist
DX: R33.9 Retention of urine, unspecified (principal); Z48.89 Encounter for other specified surgical aftercare
CPT/HCPCS: 51798; 81002; 87086

== ENCOUNTER → 2021-11-03 08:05 | Outpatient (CLI) | payer MEDICARE, SELFPAY ==
[2021-02-03 10:52] VITALS: BMI 25.0
[2021-11-03 09:01] LABS: Cholesterol 148 mg/dL (140-199); HDL Cholesterol 51 mg/dL (40-60); LDL Cholesterol Calculated 78 mg/dL (<100); Triglycerides 96 mg/dL (35-150)
== END ==
PROVIDERS: Family Provider Family Medicine; PCP Family Medicine; Referring Provider Internal Medicine Cardiovascular Disease; Visit Provider Internal Medicine Cardiovascular Disease
DX: E78.5 Hyperlipidemia, unspecified (principal)
CPT/HCPCS: 36415; 80061

== ENCOUNTER → 2022-06-04 07:10 | Outpatient (CLI) | payer MEDICARE, SELFPAY ==
[2021-02-03 10:52] VITALS: BMI 25.0
[2022-06-04 09:15] LABS: Cholesterol 140 mg/dL (140-199); HDL Cholesterol 46 mg/dL (40-60); LDL Cholesterol Calculated 81 mg/dL (<100); Triglycerides 67 mg/dL (35-150)
== END ==
PROVIDERS: Family Provider Family Medicine; PCP Family Medicine; Referring Provider Internal Medicine Cardiovascular Disease; Visit Provider Internal Medicine Cardiovascular Disease
DX: E78.5 Hyperlipidemia, unspecified (principal)
CPT/HCPCS: 36415; 80061

== ENCOUNTER 2022-06-20 16:03 | Observation (INO) | payer MEDICARE, SELFPAY ==
[2021-02-03 10:52] VITALS: BMI 25.0
[2022-06-20] VITALS (20 sets, daily range): BP systolic 132–174; BP diastolic 74–87; PULSE 76–86; RESP 10–36; TEMP 36.6; O2SAT 94–97; BMI 22.8
--- NOTE | 2022-06-20 16:16 | DI.RAD.S_ITS ---
PROCEDURE: XR CHEST 1V INDICATIONS: chest pain TECHNIQUE: One view of the chest was acquired. COMPARISON: [facility], CR, XR CHEST 1V, 01/07/2021, 23:11. FINDINGS: Surgical changes and devices: Sternotomy wires and mediastinal clips are present. The 2 most superior cerclage wires are fractured. Lungs and pleura: Lungs are clear. No pleural effusions or pneumothorax. Mediastinum: Mediastinal contours appear normal. Heart size is normal. Bones and chest wall: No suspicious bony lesions. Overlying soft tissues appear unremarkable. IMPRESSION: No acute cardiopulmonary abnormality. Dictated by: Alberto Leyva M.D. on 06/20/2022 at 15:49 Approved by: Alberto Leyva M.D. on 06/20/2022 at 15:50
[2022-06-20] MEDS: ASPIRIN 81 MG CHEW TAB 324 MG PO (16:23)
[2022-06-20 16:50] LABS: Add Manual Diff / Slide Review NO; Basophils Absolute Auto 0 /uL (0-100); Basophils Percent Auto 0.5 % (0-2); Eosinophils Absolute Auto 200 /uL (0-450); Eosinophils Percent Auto 3.1 % (2-4); Hematocrit 45.1 % (41-53); Hemoglobin 14.9 g/dL (13.5-17.5); Lymphocytes Absolute Auto 1400 /uL (1100-4500); Lymphocytes Percent Auto 22.6 % (25-40); Mean Corpuscular HGB Conc 33.1 % (30-36); Mean Corpuscular Hemoglobin 29.5 PG (26-34); Monocytes Absolute Auto 800 /uL (0-900); Monocytes Percent Auto 12.3 % (3-14); Neutrophils Absolute Auto 3800 /uL (1500-7000); Neutrophils Percent Auto 61.5 % (50-75); Platelet Count 237 X10^3/uL (150-400); Red Blood Cell Count 5.07 X10^6/uL (4.5-5.9); Red Cell Distribution Width 13.7 % (11.6-14.8); White Blood Cell Count 6.2 X10^3/uL (4.5-11.0)
[2022-06-20 16:57] LABS: Alanine Aminotransferase 38 IU/L (<50); Albumin 4.2 g/dL (3.5-5.0); Albumin Globulin Ratio 1.3 (1.0-2.8); Alkaline Phosphatase 115 U/L (38-126); Aspartate Aminotransferase 35 IU/L (17-59); BUN Creatinine Ratio 23.6 (6-22); Bilirubin Total 0.5 mg/dL (0.2-1.3); Blood Urea Nitrogen 17 mg/dL (9-20); Calcium 9.9 mg/dL (8.4-10.2); Carbon Dioxide 25 mmol/L (22-32); Chloride 103 mmol/L (98-107); Creatine Kinase 183 U/L (55-170); Estimated Glomerular Filt Rate > 60 mL/min (>60); Globulin 3.2 g/dL (1.7-4.1); Glucose 108 mg/dL (80-110); Lipase 112 U/L (23-300); Magnesium 2.3 mg/dL (1.6-2.3); Sodium 139 mmol/L (137-145); Total Protein 7.4 g/dL (6.3-8.2)
[2022-06-20 17:09] LABS: Troponin I < 0.012 ng/mL (0.01-0.034)
[2022-06-20 17:12] LABS: HEMOLYSIS 15 (0-50)
[2022-06-20 17:36] LABS: CKMB % Relative Index 1.2 % (1.5-5.0); Creatine Kinase MB 2.27 ng/mL (<2.37)
--- NOTE | 2022-06-20 18:32 | ED.CHESTPAIN ---
HPI - Chest Pain General Chief Complaint: Chest Pain Stated Complaint: Chest pains Time Seen by Provider: 06/20/22 18:05 Source: patient and family Mode of arrival: Ambulatory Limitations: no limitations History of Present Illness HPI narrative: 77-year-old male with a known history of coronary artery disease. Had a multivessel bypass graft in 2016. Two years ago was seen in the emergency department for chest discomfort that was similar to today. He did have a stress test afterwards. Was told that his heart looked okay. He has been taking all his medications as directed. He states that earlier today he was on a walk with his . He normally walks every day. He started to have left-sided chest pressure. This lasted for several minutes. It did resolve on its own. It did come back later in the day. The time my evaluation he was asymptomatic. He reports no shortness of breath. Chest pain not worse with palpation or movement or breathing. At the time of the chest discomfort he stated that he was somewhat diaphoretic. It did not radiate. Related Data Home Medications Medication Instructions Recorded Confirmed aspirin 81 mg tablet,delayed 81 mg PO BID 11/09/18 06/20/22 release (Adult Aspirin Regimen) acetaminophen 500 mg tablet 500 mg PO Q6H PRN Pain (Scale 05/02/20 03/27/21 Score 1-3) cholecalciferol (vitamin D3) 50 50 mcg PO DAILY 05/02/20 03/27/21 mcg (2,000 unit) capsule famotidine 20 mg tablet (Acid 40 mg PO BID 05/02/20 06/20/22 Account Support Rep (famotidine)) folic acid 400 mcg tablet 0.4 mg PO DAILY 05/02/20 03/27/21 melatonin 5 mg tablet 5 mg PO BEDTIME PRN Insomnia 05/02/20 03/27/21 omega-3 fatty acids 1,000 mg 1,000 mg PO DAILY 05/02/20 03/27/21 capsule (Fish Oil Concentrate) sildenafil (pulm.hypertension) 20 20 mg PO DAILY PRN Sexual Activity 05/02/20 03/27/21 mg tablet ezetimibe 10 mg tablet 10 mg PO DAILY 01/08/21 06/20/22 losartan 25 mg tablet (Cozaar) 12.5 mg PO QDAY 01/28/21 06/20/22 metoprolol succinate 25 mg 12.5 mg PO BID 01/28/21 06/20/22 tablet,extended release 24 hr theanine 200 mg capsule 200 mg PO DAILY 09/03/21 09/03/21 triamcinolone acetonide 40 mg/mL 40 mg IM .YEARLY 09/03/21 09/03/21 suspension for injection (Kenalog) trospium 20 mg tablet 20 mg PO BID 09/03/21 09/03/21 Previous Rx's Medication Instructions Recorded atorvastatin 80 mg tablet 80 mg PO HS #90 tabs 11/08/19 acyclovir 400 mg tablet 400 mg PO TID PRN herpes outbreak 11/13/20 7 days #21 tabs finasteride 5 mg tablet 5 mg PO DAILY #90 tabs 11/13/20 tamsulosin 0.4 mg capsule (Flomax) 0.8 mg PO QDAY #180 caps 01/15/21 cephalexin 500 mg capsule 500 mg PO TID #10 caps 02/04/21 celecoxib 100 mg capsule See Rx Instructions .Route 01/12/22 .COMPLEX #90 caps bupropion HCl 150 mg tablet,12 hr 150 mg PO BID #180 ea 04/02/22 sustained-release fluticasone propionate 50 1 spray intranasal BID #47.4 mL 04/24/22 mcg/actuation nasal spray,suspension Allergies Allergy/AdvReac Type Severity Reaction Status Date / Time Sulfa (Sulfonamide Allergy Severe rash and Verified 06/20/22 16:18 Antibiotics) itching [SULFA (SULFONAMIDE ANTIBIOTICS)] Review of Systems Review of Systems ROS Unobtainable: All systems reviewed & are unremarkable except as noted in HPI and below Patient History Medical History Actinic keratosis (~2011) Anxiety Atrial fibrillation (~03/2016) Atrial flutter Atypical chest pain Carpal tunnel syndrome (~2003) Chicken pox (~1956) Chronic back pain (~1985) DDD (degenerative disc disease), lumbar Depression Family history of Vicente's chorea (09/13/13) Family history of Vicente's chorea GERD (gastroesophageal reflux disease) (~1983) Hay fever (~1969) Herpes (~1987) Hyperlipidemia (~1989) Hypertension (~1983) Measles (~1959) Mumps (~1960) Nocturia Osteoarthritis (~1984) Psoriasis (~2009) Psoriatic arthritis Seasonal allergies (~1969) Shoulder pain Sore of lower lip (~2009) Surgical History Anesthesia History of carpal tunnel repair History of hip replacement (~09/2010) History of knee replacement (~08/2014) History of third molar tooth extraction (~07/2010) History of tonsillectomy (~1949) History of vasectomy (~1983) Status post arthroscopy (~1961) Status post arthroscopy (~12/2009) Status post arthroscopy (~07/2009) 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) Status post knee surgery (~1971) Trigger finger Family History Brother Age: 71 BPH (benign prostatic hypertrophy) Brother Age: 69 Essential hypertension Father [place] chorea Chronic obstructive pulmonary disease, unspecified COPD type Essential hypertension Mother CAD (coronary artery disease) Arthritis Ulcer Essential hypertension High cholesterol Mental health problem Grandfather History of heart attack Grandmother History of heart attack Grandfather History of heart attack Grandmother History of heart attack Social History marital status: household members: spouse Smoking Status: Former smoker alcohol intake: current substance use type: does not use Smoking Status: Former smoker alcohol intake frequency: a few times a week Substance Use Type: does not use Exam Initial Vital Signs Initial Vital Signs: Vital Signs Temperature 98 F 06/20/22 16:16 Pulse Rate 86 06/20/22 16:16 Respiratory Rate 17 06/20/22 16:16 Blood Pressure 174/84 H 06/20/22 16:16 Pulse Oximetry 97 06/20/22 16:16 Oxygen Delivery Method 06/20/22 16:16 Const General: cooperative and comfortable HENMT Head: normal to inspection and normocephalic Chest Chest: No crepitus and No tenderness Resp Effort & Inspection: normal respiratory effort Auscultation: clear to auscultation bilaterally Cardio Rate: regular rate Rhythm: regular rhythm GI Inspection: normal to inspection Skin General: no rashes or lesions noted Neuro General: patient alert, patient awake, patient oriented x3 and moves all extremities Extrem General: normal to inspection and capillary refill normal Psych Appearance: grossly normal and well kempt Scores HEART Score Heart Score history: Moderately Suspicious Heart Score EKG: Non-Specific repolarization disturbance Heart Score Age: > or = 65 years old Heart Score risk factors: > 3 risk factors or hx of atherosclerotic disease Heart Score troponin: < or = to normal limit Heart Score Total: 6 Course Orders Ordered: ED Orders 06/20/22 19:30 Troponin I Stat 06/20/22 21:26 Consult to Physician Stat Consult to Physician Urgent 06/21/22 06:00 Basic Metabolic Panel Stat Complete Blood Count AUTO DIFF Stat Troponin & CK Cardiac Panel Stat Ondansetron HCl (Ondansetron 4 Mg/2 Ml Inj) 4 mg IV Q4HR PRN PRN Reason: Nausea And Vomiting Discontinued Medications Aspirin (Aspirin 81 Mg Chew Tab) 324 mg PO NOW ONE Stop: 06/20/22 16:17 Last Admin: 06/20/22 16:23 Dose: 324 mg Documented By: SHAWN Sodium Chloride (Normal Saline 0.9%) 1,000 mls @ 100 mls/hr IV CONT HARDIK Vital Signs Vital signs: Vital Signs - 8 hr 06/20/22 20:00 06/20/22 20:00 06/20/22 20:15 Pulse Rate 82 80 Respiratory Rate 21 31 H Blood Pressure 146/77 H Pulse Oximetry 96 95 06/20/22 20:30 06/20/22 20:30 06/20/22 20:45 Pulse Rate 82 80 Respiratory Rate 36 H 32 H Blood Pressure 151/86 H Pulse Oximetry 95 96 06/20/22 21:00 06/20/22 21:00 06/20/22 21:15 Pulse Rate 78 83 Respiratory Rate 24 34 H Blood Pressure 139/75 Pulse Oximetry 94 95 06/20/22 21:30 06/20/22 21:30 Pulse Rate 76 Respiratory Rate 29 H Blood Pressure 142/77 H Pulse Oximetry 94 MDM - Chest Pain Lab Data Attestation: I reviewed the patient's lab results. Result diagrams: 06/20/22 16:25 06/20/22 16:25 Labs: Lab Results 06/20/22 06/20/22 06/20/22 Range/Units 16:25 16:25 19:30 WBC 6.2 (4.5-11.0) X10^3/uL RBC 5.07 (4.5-5.9) X10^6/uL Hgb 14.9 (13.5-17.5) g/dL Hct 45.1 (41-53) % MCV 89.0 (80-100) fL MCH 29.5 (26-34) PG MCHC 33.1 (30-36) % RDW 13.7 (11.6-14.8) % Plt Count 237 (150-400) X10^3/uL Neut % (Auto) 61.5 (50-75) % Lymph % (Auto) 22.6 L (25-40) % [place] % (Auto) 12.3 (3-14) % Eos % (Auto) 3.1 (2-4) % Baso % (Auto) 0.5 (0-2) % Neut # (Auto) 3800 (0325-2717) /uL Lymph # (Auto) 1400 (9650-5893) /uL [place] # (Auto) 800 (0-900) /uL Eos # (Auto) 200 (0-450) /uL Baso # (Auto) 0 (0-100) /uL Sodium 139 (137-145) mmol/L Potassium 4.0 (3.4-5.1) mmol/L Chloride 103 (98-107) mmol/L Carbon Dioxide 25 (22-32) mmol/L BUN 17 (9-20) mg/dL Creatinine 0.72 (0.66-1.25) mg/dL Estimated GFR > 60 (>60) mL/min BUN/Creatinine Ratio 23.6 H (6-22) Glucose 108 (80-110) mg/dL Calcium 9.9 (8.4-10.2) mg/dL Magnesium 2.3 (1.6-2.3) mg/dL Total Bilirubin 0.5 (0.2-1.3) mg/dL AST 35 (17-59) IU/L ALT 38 (<50) IU/L Alkaline Phosphatase 115 (38-126) U/L Total Creatine Kinase 183 H (55-170) U/L CK-MB (CK-2) 2.27 (<2.37) ng/mL CK-MB (CK-2) Rel Index 1.2 L (1.5-5.0) % Troponin I < 0.012 < 0.012 (0.01-0.034) ng/mL Total Protein 7.4 (6.3-8.2) g/dL Albumin 4.2 (3.5-5.0) g/dL Globulin 3.2 (1.7-4.1) g/dL Albumin/Globulin Ratio 1.3 (1.0-2.8) Lipase 112 (23-300) U/L SARS-CoV-2 (PCR) (Negative) 06/20/22 Range/Units 21:40 WBC (4.5-11.0) X10^3/uL RBC (4.5-5.9) X10^6/uL Hgb (13.5-17.5) g/dL Hct (41-53) % MCV (80-100) fL MCH (26-34) PG MCHC (30-36) % RDW (11.6-14.8) % Plt Count (150-400) X10^3/uL Neut % (Auto) (50-75) % Lymph % (Auto) (25-40) % [place] % (Auto) (3-14) % Eos % (Auto) (2-4) % Baso % (Auto) (0-2) % Neut # (Auto) (0683-3719) /uL Lymph # (Auto) (7036-2301) /uL [place] # (Auto) (0-900) /uL Eos # (Auto) (0-450) /uL Baso # (Auto) (0-100) /uL Sodium (137-145) mmol/L Potassium (3.4-5.1) mmol/L Chloride (98-107) mmol/L Carbon Dioxide (22-32) mmol/L BUN (9-20) mg/dL Creatinine (0.66-1.25) mg/dL Estimated GFR (>60) mL/min BUN/Creatinine Ratio (6-22) Glucose (80-110) mg/dL Calcium (8.4-10.2) mg/dL Magnesium (1.6-2.3) mg/dL Total Bilirubin (0.2-1.3) mg/dL AST (17-59) IU/L ALT (<50) IU/L Alkaline Phosphatase (38-126) U/L Total Creatine Kinase (55-170) U/L CK-MB (CK-2) (<2.37) ng/mL CK-MB (CK-2) Rel Index (1.5-5.0) % Troponin I (0.01-0.034) ng/mL Total Protein (6.3-8.2) g/dL Albumin (3.5-5.0) g/dL Globulin (1.7-4.1) g/dL Albumin/Globulin Ratio (1.0-2.8) Lipase (23-300) U/L SARS-CoV-2 (PCR) Negative (Negative) Imaging Data Chest x-ray: Radiologist's Impression: [address] [address] XRay Report Signed Patient: Miguel Crane MR#: [id number] : 1945 Acct:[id number] Age/Sex: 77 / M Date of Service: 06/20/22 Loc: ED Accession Number: [id number] ?? Procedure: XR chest 1V Ordering Provider: Kelly Iyer D.O. PROCEDURE:? XR CHEST 1V ? INDICATIONS:? chest pain ? TECHNIQUE:? One view of the chest was acquired.? ? COMPARISON:? [facility], CR, XR CHEST 1V, 01/07/2021, 23:11. ? FINDINGS:? ? Surgical changes and devices:? Sternotomy wires and mediastinal clips are present.? The 2 most superior cerclage wires are fractured. ? Lungs and pleura:? Lungs are clear.? No pleural effusions or pneumothorax.? ? Mediastinum:? Mediastinal contours appear normal.? Heart size is normal.? ? Bones and chest wall:? No suspicious bony lesions.? Overlying soft tissues appear unremarkable.? ? IMPRESSION:? No acute cardiopulmonary abnormality. ? ? Dictated by: Alberto Leyva M.D. on 06/20/2022 at 15:49 ? ? Approved by: Alberto Leyva M.D. on 06/20/2022 at 15:50?? ECG Data Attestation: I personally reviewed and interpreted this ECG as follows: Interpretation: Sinus rhythm Ventricular rate of 83 Normal QRS Normal QTC Nonspecific ST T wave changes MDM Narrative Medical decision making narrative: Patient has known coronary artery disease. EKG relatively unremarkable. Troponins negative x2. Chest x-ray is unremarkable. Has been asymptomatic since arrival here in the ER. Heart score of 6. Had a discussion with the patient regarding his symptoms. We did discuss discharge home and follow-up with his primary doctor for outpatient risk stratification versus admission to the hospital. After this discussion patient opted to be admitted to the hospital. I did discuss the case with Dr. middleton who is on-call for the patient's primary doctor who will admit for further evaluation and treatment. Patient was given an aspirin. Discharge Plan Departure Patient Disposition: Admitted as Observation Clinical Impression: Chest pain Admit Date/Time: 06/20/22 21:43 Admit Provider: Paul Middleton
[2022-06-20 20:06] LABS: Troponin I < 0.012 ng/mL (0.01-0.034)
[2022-06-20 22:26] LABS: COVID19 -Nasal RAPID Negative (Negative)
--- NOTE | 2022-06-20 23:52 | PC.NURSE ---
Pt cooperative w/ care. Denies pain. BS was 217, insulin given per protocol. Fluids stopped and tele monitoring taken off per orders.
[2022-06-21] VITALS (7 sets, daily range): BP systolic 116–144; BP diastolic 68–78; PULSE 71–87; RESP 12–18; TEMP 36.3–36.8; O2SAT 97–99
[2022-06-21 06:18] LABS: Add Manual Diff / Slide Review NO; Basophils Absolute Auto 100 /uL (0-100); Basophils Percent Auto 0.8 % (0-2); Eosinophils Absolute Auto 200 /uL (0-450); Eosinophils Percent Auto 3.8 % (2-4); Hematocrit 45.2 % (41-53); Hemoglobin 14.9 g/dL (13.5-17.5); Lymphocytes Absolute Auto 1500 /uL (1100-4500); Lymphocytes Percent Auto 24.2 % (25-40); Mean Corpuscular Hemoglobin 29.4 PG (26-34); Mean Corpuscular Volume 88.9 fL (80-100); Monocytes Absolute Auto 800 /uL (0-900); Monocytes Percent Auto 12.3 % (3-14); Neutrophils Absolute Auto 3800 /uL (1500-7000); Neutrophils Percent Auto 58.9 % (50-75); Platelet Count 222 X10^3/uL (150-400); Red Blood Cell Count 5.09 X10^6/uL (4.5-5.9); Red Cell Distribution Width 13.7 % (11.6-14.8); White Blood Cell Count 6.4 X10^3/uL (4.5-11.0)
[2022-06-21 06:20] LABS: BUN Creatinine Ratio 19.7 (6-22); Blood Urea Nitrogen 14 mg/dL (9-20); Calcium 9.2 mg/dL (8.4-10.2); Carbon Dioxide 26 mmol/L (22-32); Chloride 104 mmol/L (98-107); Creatine Kinase 166 U/L (55-170); Estimated Glomerular Filt Rate > 60 mL/min (>60); Glucose 95 mg/dL (80-110); HEMOLYSIS < 15 (0-50); Potassium 3.9 mmol/L (3.4-5.1); Sodium 138 mmol/L (137-145)
[2022-06-21 06:32] LABS: Troponin I < 0.012 ng/mL (0.01-0.034)
[2022-06-21 06:35] LABS: CKMB % Relative Index 1.2 % (1.5-5.0); Creatine Kinase MB 1.99 ng/mL (<2.37)
[2022-06-21] MEDS: ACETAMINOPHEN 325 MG TABLET 650 MG PO (08:54)
[2022-06-21] MEDS: FAMOTIDINE 20 MG TABLET PO ×2 (08:55→20:55)
--- NOTE | 2022-06-21 10:25 | PM.HP.1 ---
History of Present Illness History of Present Illness Date Patient Seen: 06/21/22 Time Patient Seen: 10:25 Date of Onset of Symptoms: 06/20/22 Chief complaint: Chest pains Narrative: Pt with hx of Scarbro's chorea and CABG presented to ED with new crushing L sided chest pain during a walk with his yesterday. Feels ok today and overnight, has been resting comfortabl but says he still has a small degree of L chest pain now at rest. appetite good no trouble getting to bathroom. Follows with cardiology, last echo was over a year ago. Initial troponins were unconcerning however history is very concerning for angina. Admitted for further eval/stress/echo. Patient History Medical History Actinic keratosis (~2011) Anxiety Atrial fibrillation (~03/2016) Atrial flutter Atypical chest pain Carpal tunnel syndrome (~2003) Chicken pox (~1956) Chronic back pain (~1985) DDD (degenerative disc disease), lumbar Depression Family history of Scarbro's chorea (09/13/13) Family history of Scarbro's chorea GERD (gastroesophageal reflux disease) (~1983) Hay fever (~1969) Herpes (~1987) Hyperlipidemia (~1989) Hypertension (~1983) Measles (~1959) Mumps (~1960) Nocturia Osteoarthritis (~1984) Psoriasis (~2009) Psoriatic arthritis Seasonal allergies (~1969) Shoulder pain Sore of lower lip (~2009) Surgical History Anesthesia History of carpal tunnel repair History of hip replacement (~09/2010) History of knee replacement (~08/2014) History of third molar tooth extraction (~07/2010) History of tonsillectomy (~1949) History of vasectomy (~1983) Status post arthroscopy (~1961) Status post arthroscopy (~12/2009) Status post arthroscopy (~07/2009) 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) Status post knee surgery (~1971) Trigger finger Family & Social History Family History Brother Age: 71 BPH (benign prostatic hypertrophy) Brother Age: 69 Essential hypertension Father [place] chorea Chronic obstructive pulmonary disease, unspecified COPD type Essential hypertension Mother CAD (coronary artery disease) Arthritis Ulcer Essential hypertension High cholesterol Mental health problem Grandfather History of heart attack Grandmother History of heart attack Grandfather History of heart attack Grandmother History of heart attack Social History: household members spouse Prior Living Arrangements House Safety & Behavioral: Feels Safe in Current Yes Environment Been Physically Hurt or No Threatened By a Person Tobacco & Substance use: Tobacco type cigarettes Smoking Status Former smoker alcohol intake current alcohol intake frequency a few times a week Substance Use Type does not use Meds Home Medications and Allergies Home Medications Medication Instructions Recorded Confirmed Type aspirin 81 mg tablet,delayed 81 mg PO BID 11/09/18 06/20/22 History release (Adult Aspirin Regimen) atorvastatin 80 mg tablet 80 mg PO HS #90 tabs 11/08/19 06/20/22 Rx acetaminophen 500 mg tablet 500 mg PO Q6H PRN Pain (Scale 05/02/20 06/21/22 History Score 1-3) cholecalciferol (vitamin D3) 50 50 mcg PO DAILY 05/02/20 06/21/22 History mcg (2,000 unit) capsule famotidine 20 mg tablet (Acid 40 mg PO BID 05/02/20 06/20/22 History [employer] (famotidine)) folic acid 400 mcg tablet 0.4 mg PO DAILY 05/02/20 06/21/22 History melatonin 5 mg tablet 5 mg PO BEDTIME PRN Insomnia 05/02/20 06/21/22 History omega-3 fatty acids 1,000 mg 1,000 mg PO DAILY 05/02/20 06/21/22 History capsule (Fish Oil Concentrate) sildenafil (pulm.hypertension) 20 20 mg PO DAILY PRN Sexual Activity 05/02/20 06/21/22 History mg tablet acyclovir 400 mg tablet 400 mg PO TID PRN herpes outbreak 11/13/20 06/21/22 Rx 7 days #21 tabs finasteride 5 mg tablet 5 mg PO DAILY #90 tabs 11/13/20 06/20/22 Rx ezetimibe 10 mg tablet 10 mg PO DAILY 01/08/21 06/20/22 History tamsulosin 0.4 mg capsule (Flomax) 0.8 mg PO QDAY #180 caps 01/15/21 03/27/21 Rx losartan 25 mg tablet (Cozaar) 12.5 mg PO QDAY 01/28/21 06/20/22 History metoprolol succinate 25 mg 12.5 mg PO BID 01/28/21 06/20/22 History tablet,extended release 24 hr cephalexin 500 mg capsule 500 mg PO TID #10 caps 02/04/21 06/21/22 Rx theanine 200 mg capsule 200 mg PO DAILY 09/03/21 06/21/22 History triamcinolone acetonide 40 mg/mL 40 mg IM .YEARLY 09/03/21 09/03/21 History suspension for injection (Kenalog) trospium 20 mg tablet 20 mg PO BID 09/03/21 09/03/21 History celecoxib 100 mg capsule See Rx Instructions .Route 01/12/22 06/20/22 Rx .COMPLEX #90 caps bupropion HCl 150 mg tablet,12 hr 150 mg PO BID #180 ea 04/02/22 06/20/22 Rx sustained-release fluticasone propionate 50 1 spray intranasal BID #47.4 mL 04/24/22 06/21/22 Rx mcg/actuation nasal spray,suspension Allergies Allergy/AdvReac Type Severity Reaction Status Date / Time Sulfa (Sulfonamide Allergy Severe rash and Verified 06/20/22 16:18 Antibiotics) itching [SULFA (SULFONAMIDE ANTIBIOTICS)] Review of Systems Review of Systems Narrative: all systems reviewed and negative except as otherwise documented in HPI Exam Vital Signs (past 8 hours): - 06/21/22 08:07 Temperature 98.1 F Pulse Rate 79 Respiratory Rate 18 Blood Pressure 131/78 Pulse Oximetry 98 Oxygen Flow Rate 0 Oxygen Delivery Method Room Air Oxygen Flow Rate 0 Const General: cooperative and comfortable [facility] Head: normal to inspection, normocephalic and atraumatic Eyes General: appearance normal, both eyes and all related structures Resp Auscultation: clear to auscultation bilaterally Cardio Palpation: normal PMI Rate: tachycardic Rhythm: regular rhythm Heart Sounds: S1 normal and S2 normal GI Other: soft nontender nondistended normal bowel sounds Skin General: no rashes or lesions noted Neuro General: patient alert, patient awake, patient oriented x3, moves all extremities and CN's II-XI intact bilaterally Other: choreaform dancing of legs Extrem General: normal to inspection and full ROM Psych Appearance: grossly normal Objective Labs Result Diagrams: 06/21/22 05:55 06/21/22 05:55 Labs: Laboratory Results - last 24 hr 06/20/22 06/20/22 06/20/22 16:25 16:25 19:30 WBC 6.2 RBC 5.07 Hgb 14.9 Hct 45.1 MCV 89.0 MCH 29.5 MCHC 33.1 RDW 13.7 Plt Count 237 Neut % (Auto) 61.5 Lymph % (Auto) 22.6 L [place] % (Auto) 12.3 Eos % (Auto) 3.1 Baso % (Auto) 0.5 Neut # (Auto) 3800 Lymph # (Auto) 1400 [place] # (Auto) 800 Eos # (Auto) 200 Baso # (Auto) 0 Sodium 139 Potassium 4.0 Chloride 103 Carbon Dioxide 25 BUN 17 Creatinine 0.72 Estimated GFR > 60 BUN/Creatinine Ratio 23.6 H Glucose 108 Calcium 9.9 Magnesium 2.3 Total Bilirubin 0.5 AST 35 ALT 38 Alkaline Phosphatase 115 Total Creatine Kinase 183 H CK-MB (CK-2) 2.27 CK-MB (CK-2) Rel Index 1.2 L Troponin I < 0.012 < 0.012 Total Protein 7.4 Albumin 4.2 Globulin 3.2 Albumin/Globulin Ratio 1.3 Lipase 112 SARS-CoV-2 (PCR) 06/20/22 06/21/22 06/21/22 21:40 05:55 05:55 WBC 6.4 RBC 5.09 Hgb 14.9 Hct 45.2 MCV 88.9 MCH 29.4 MCHC 33.0 RDW 13.7 Plt Count 222 Neut % (Auto) 58.9 Lymph % (Auto) 24.2 L [place] % (Auto) 12.3 Eos % (Auto) 3.8 Baso % (Auto) 0.8 Neut # (Auto) 3800 Lymph # (Auto) 1500 [place] # (Auto) 800 Eos # (Auto) 200 Baso # (Auto) 100 Sodium 138 Potassium 3.9 Chloride 104 Carbon Dioxide 26 BUN 14 Creatinine 0.71 Estimated GFR > 60 BUN/Creatinine Ratio 19.7 Glucose 95 Calcium 9.2 Magnesium Total Bilirubin AST ALT Alkaline Phosphatase Total Creatine Kinase 166 CK-MB (CK-2) 1.99 CK-MB (CK-2) Rel Index 1.2 L Troponin I < 0.012 Total Protein Albumin Globulin Albumin/Globulin Ratio Lipase SARS-CoV-2 (PCR) Negative Assessment & Plan Assessment & Plan narrative: #Chest pain on exertion r/o ACS #CAD, hx of CABG continue ASA/statin/ezetimibe initial troponins wnl continue sprigger, will get stress test and echo to guide further management if wnl can f/u as outpt #Scarbro's Chorea low CAG repeat count but over threshold for dx- father lived to old age but also had heart problems. he has ongoing chorea however reports intentional movement is pretty good, denies falls. #MDD continue bupropion XL, mood good today #GERD stable continue home meds #HTN/tachycardia stable continue home metoprolol and losartan #BPH w/obstruction stable not on meds takes saw palmetto supplements does ok Code: Full allergies: sulfas MDM: spouse Kalyn Butts dispo: admit inpt to get stress test tomorrow Time Spent With Patient Critical Care time: I spent a total of [] minutes of critical care time on this patient's care today; this time is exclusive of procedural time. Quality VTE Deep Vein Thrombosis/Pulmonary Embolism Present on Admission: No
--- NOTE | 2022-06-21 11:11 | CM.DANOTE ---
Patient is a 77 yo male who was admitted on 06/20/22 for Chest Pains. Pt has [facility] for insurance and his PCP is Dr. Flex Dailey. EMR was reviewed. Per MD, pt with hx of coronary artery disease and admitted for chest pain r/o and needs stress test but not available until tomorrow Wednesday. SW met bedside with pt and explained role and pt confirms he still lives at home in [place] with his spouse/POA Jeanie and is mostly independent with ADL's at baseline. Pt denies any hx of SNF or HH recently. Pt denies any local family but states pt's Sister homar recently moved to [place] and is a big support to his spouse and they spend a lot of time with each other and assist each other whenever needed. Pt does not anticipate any d/c planning needs and is hopeful for home via spouse POV. Pt did mention he has questions regarding his fci antidepressant and feeling that his mind has been more foggy and I feel a little more depressed and was wondering about a med adjustment to his antidepressant. SW encouraged pt to talk to his PCP but also mentioned [facility] for med management and pt confirms he was initially prescribed by Liseth COLBY at [facility] and felt this was very helpful. SW updated MD who feels this is likely due to pt's heart functioning but will review with pt and also feels stress test will be helpful. Plan: SW to follow tomorrow for Stress test and results towards determining any d/c planning needs. NICKOLAS Doll Discharge Planning/Care Management CM Discharge Assessment Start: 06/21/22 10:58 Freq: Status: Active Protocol: Document 06/21/22 10:58 (Rec: 06/21/22 11:07 [id number]) Discharge Planning Assessment Assigned Strategic Planning Analyst NICKOLAS Gandhi DPOA/Assigned Designee Name Spouse Jeanie Contact Information [phone] Advance Directives? Yes Advance Directives on File Yes History Provided By Patient,Medical Record Has Patient been admitted in last 30 No days? Prior Living Arrangements House Household Members spouse Type of transporation used prior to Drives own vehicle admit Independent with ADL's Yes Is patient alert and oriented? Yes Needs Assistance With Home Chores / Shopping Caregiver for Another No Comment Goes to the gym regularly for excersize DME Already Rented / Owned Cane Barriers to Discharge No Discharge Plan Home Transportation Arrangement Spouse Gale Referrals Initiated None needed Whiteboard Updated in Patient Room with Yes name and ext. # of Strategic Planning Analyst Review Status In Process Please Provide Date Initial DC 06/21/22 Assessment Was Performed Next Review Type Continued Stay Review
--- NOTE | 2022-06-21 11:53 | DI.ECHO.S_ITS ---
[facility]---------+ [facility] +---------+ : : [address] : : : : [id number] : : : : Phone: [phone]+ Echocardiogram Report + + :Name: NAYAN PORTILLO Study Date: 06/22/2022 Height: 67 in : :[facility] ReadingLocation: Weight: 145 lb : : Gender: Male BSA: 1.8 m2 : :: 1945 Age: 77 yrs BP: 116/72 mmHg: :Reason For Study: CHEST PAIN, CABG : :Ordering Physician: WILBERT, : :NICHOLAS Cooley Performed By: Jannie Mitchell : :Referring: NICHOLAS ATKINS : + + Interpretation Summary Normal left ventricle size with ejection fraction 60-65%. No signifiant valvular abnormality. Comparison is made with the echocardiogram of 01/08/2021, there has been no significant change. Procedure: A two-dimensional transthoracic echocardiogram with color flow and Doppler was performed. The study quality was technically adequate. Comparison is made with the echocardiogram of 01/08/2021. The patient was in sinus rhythm with heart rates between 67-74 bpm during the exam. Left Ventricle: The left ventricle is normal in size. Proximal septal thickening is noted. The ejection fraction is estimated to be 60-65%. There are no focal wall motion abnormalities. Right Ventricle: The right ventricle is not well visualized. The right ventricle grossly appears normal in size with probable normal systolic function. Atria: The left atrial size is normal. Right atrial size is normal. There is no Doppler evidence for an interatrial shunt. Mitral Valve: The mitral valve leaflets appear mildly thickened, but open well. The mitral valve leaflets appear to open well. There is trace mitral regurgitation. Aortic Valve: The aortic valve is trileaflet. The aortic valve opens well. There is mild aortic valve sclerosis. There is no aortic valve stenosis. No aortic regurgitation is present. Tricuspid Valve: The tricuspid valve is normal in structure and function. There is mild tricuspid regurgitation. Pulmonic Valve: The pulmonic valve leaflets are thin and pliable; valve motion is normal. There is mild pulmonic regurgitation. Great Vessels: The aortic root is normal size. The dimensions of the ascending aorta are normal. The IVC is of normal diameter and collapses greater than 50% with a sniff. This suggests a low right atrial pressure of 3 mm Hg. Pericardium/ Pleura There is no pericardial effusion. There is no pleural effusion. MMode/2D Measurements & Calculations LVIDd: 4.3 cm LVOT diam: 2.3 cm LVIDs: 2.7 cm Ao root diam: 3.4 cm FS: 36.1 % asc Aorta Diam: 3.4 cm EPSS: 0.64 cm Ao Arch Diam (Prox Trans): 3.2 cm IVSd: 0.75 cm LVPWd: 0.65 cm LV vasquez. diameter/BSA (cm/m^2): 2.4 LV sys. diameter/BSA (cm/m^2): 1.5 LA A2 area: 16.4 cm2 RA long axis: 4.8 cm LA A4 area: 12.9 cm2 RA area: 13.6 cm2 LA length (vol): 4.3 cm RA vol: 33.0 ml LA vol: 42.2 ml RA : 18.7 ml/m2 LA vol index: 23.9 ml/m2 IVC diam: 1.2 cm TAPSE: 1.5 cm Doppler Measurements & Calculations Ao V2 max: 112.3 cm/sec LVOT Max Anthony: 98.7 cm/sec Ao V2 mean: 78.0 cm/sec LV V1 max P.9 mmHg Ao max P.0 mmHg LV V1 VTI: 19.5 cm Ao mean P.7 mmHg DAMIAN(I,D): 3.3 cm2 Ao V2 VTI: 23.5 cm DAMIAN(V,D): 3.5 cm2 sev ratio: 0.83 DAMIAN indexed to BSA (cm^2/m^2): 1.9 MV E max anthony: 61.3 cm/sec PA V2 max: 78.0 cm/sec MV A max anthony: 65.7 cm/sec PA V2 mean: 51.8 cm/sec MV E/A: 0.93 PA mean P.2 mmHg Med Peak E' Anthony: 6.5 cm/sec PA pr(Accel): 36.2 mmHg E/E' med: 9.5 Lat Peak E' Anthony: 9.4 cm/sec E/E' lat: 6.5 E/e' average: 8.0 MV dec time: 0.26 sec SV(LVOT): 78.2 ml Electronically signed by: Indira Alonso on Reading Physician:06/22/2022 01:43 PM
[2022-06-21] MEDS: ENOXAPARIN 40 MG/0.4 ML SYRINGE SUBCUT (12:02)
[2022-06-21] MEDS: METOPROLOL ER 25 MG TABLET 12.5 MG PO (14:04)
[2022-06-21] MEDS: LOSARTAN 25 MG TABLET 12.5 MG PO (14:04)
[2022-06-21] MEDS: FAMOTIDINE 20 MG TABLET 40 MG PO (20:53)
[2022-06-21] MEDS: ASPIRIN EC 81 MG TABLET PO (20:53)
[2022-06-21] MEDS: ATORVASTATIN 20 MG TABLET 80 MG PO (20:54)
[2022-06-21] MEDS: FLUTICASONE 120 SPRAY/16 GM SPRAY.SUSP NASAL (20:56)
[2022-06-21] MEDS: buPROPion SR 150 MG TAB PO (20:59)
--- NOTE | 2022-06-22 04:49 | PC.NURSE ---
Pt is cooperative with care and pleasant with staff. independent in the room and with all ADLs. NPO since midnight.
[2022-06-22 05:45] VITALS: BP 114/78; PULSE 74; RESP 18; TEMP 36.7; O2SAT 96
[2022-06-22 08:27] VITALS: BP 134/77; PULSE 75; RESP 20; TEMP 36.9; O2SAT 96
[2022-06-22] MEDS: FLUTICASONE 120 SPRAY/16 GM SPRAY.SUSP NASAL (08:40)
[2022-06-22] MEDS: ENOXAPARIN 40 MG/0.4 ML SYRINGE SUBCUT (08:43)
[2022-06-22] MEDS: FISH OIL 1,000 MG CAPSULE 1000 MG PO (08:43)
[2022-06-22] MEDS: CELECOXIB 100 MG CAPSULE PO (08:44)
[2022-06-22] MEDS: FOLIC ACID 0.4 MG TABLET PO (08:44)
[2022-06-22] MEDS: LOSARTAN 25 MG TABLET 12.5 MG PO (08:44)
[2022-06-22] MEDS: FAMOTIDINE 20 MG TABLET PO (08:45)
[2022-06-22 08:46] VITALS: O2SAT 95
[2022-06-22] MEDS: METOPROLOL ER 25 MG TABLET 12.5 MG PO (08:46)
[2022-06-22] MEDS: ASPIRIN EC 81 MG TABLET PO (08:46)
[2022-06-22] MEDS: CHOLECALCIFEROL (VITAMIN D3) 1,000 UNIT TABLET 1000 UNIT PO (08:46)
[2022-06-22] MEDS: buPROPion SR 150 MG TAB PO (08:46)
[2022-06-22] MEDS: EZETIMIBE 10 MG TABLET PO (08:48)
--- NOTE | 2022-06-22 09:54 | P.DS_ITS ---
History of Present Illness History of Present Illness Chief complaint: Chest pains Discharge Providers Provider Date of admission: 06/20/22 21:43 Discharge Date: 06/22/22 Primary care physician: Flex Dailey MD Consults: 06/20/22 21:26 Consult to Physician Stat Comment: Consulting Provider: Flex Dailey Reason for consultation: admission Has provider been notified: No Consult to Physician Urgent Comment: Consulting Provider: Paul Sierra Reason for consultation: admission Has provider been notified: Yes Discharge provider: Flex Dailey MD Summary Hospital Course Discharge Diagnosis: Chest pain with history of coronary artery disease and CABG Hypertension Hyperlipidemia Vicente's chorea BPH Hospital Course: Patient was admitted the hospital with chest pain and pressure. Patient has a history of hypertension hyperlipidemia coronary artery disease status post CABG. Patient was admitted in worked up and evaluated for underlying chest pain. Patient had a series of cardiac enzymes which were negative. Patient had monitoring with telemetry which showed no significant cardiac abnormality. Patient had normal blood pressure. Patient underwent an echocardiogram in the hospital. Patient was scheduled for inpatient stress testing. Due to difficulty with the scheduling and over abundance of patients. Patient was not be able to be schedule for stress test as an inpatient. During his hospital patient was placed back on his home medication without problems. Patient states he had little twinges of chest discomfort during hospital stay which she has had going on for a while. Patient had an echocardiogram in the hospital. Was scheduled to have a stress test but due to staffing stress test was not able to be done. After discussion with patient and reviewing risk factors patient will be scheduled for an outpatient stress test. Patient will return to significant chest pain worsening of symptoms. Exam Vital Signs (past 8 hours): - 06/22/22 05:45 06/22/22 08:27 Temperature 98.1 F 98.4 F Pulse Rate 74 75 Respiratory Rate 18 20 Blood Pressure 114/78 134/77 Pulse Oximetry 96 96 Oxygen Flow Rate 0 0 Oxygen Delivery Method Room Air Oxygen Flow Rate 0 Objective Labs Result Diagrams: 06/21/22 05:55 06/21/22 05:55 [facility] Medical History Actinic keratosis (~2011) Anxiety Atrial fibrillation (~03/2016) Atrial flutter Atypical chest pain Carpal tunnel syndrome (~2003) Chicken pox (~1956) Chronic back pain (~1985) DDD (degenerative disc disease), lumbar Depression Family history of [place]'s chorea (09/13/13) Family history of Vicente's chorea GERD (gastroesophageal reflux disease) (~1983) Hay fever (~1969) Herpes (~1987) Hyperlipidemia (~1989) Hypertension (~1983) Measles (~1959) Mumps (~1960) Nocturia Osteoarthritis (~1984) Psoriasis (~2009) Psoriatic arthritis Seasonal allergies (~1969) Shoulder pain Sore of lower lip (~2009) Surgical History Anesthesia History of carpal tunnel repair History of hip replacement (~09/2010) History of knee replacement (~08/2014) History of third molar tooth extraction (~07/2010) History of tonsillectomy (~1949) History of vasectomy (~1983) Status post arthroscopy (~1961) Status post arthroscopy (~12/2009) Status post arthroscopy (~07/2009) 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) Status post knee surgery (~1971) Trigger finger Family History Brother Age: 71 BPH (benign prostatic hypertrophy) Brother Age: 69 Essential hypertension Father Huntingtons chorea Chronic obstructive pulmonary disease, unspecified COPD type Essential hypertension Mother CAD (coronary artery disease) Arthritis Ulcer Essential hypertension High cholesterol Mental health problem Grandfather History of heart attack Grandmother History of heart attack Grandfather History of heart attack Grandmother History of heart attack Social History marital status: household members: spouse Smoking Status: Former smoker alcohol intake: current substance use type: does not use Discharge Plan Discharge Plan Patient Disposition: Home Provider Discharge Comment: Follow-up with Dr. Dailey please arrange for outpatient Cardiolite stress test Discharge orders & Medications Prescriptions: Continued acetaminophen 500 mg tablet 500 mg PO Q6H PRN (Reason: Pain (Scale Score 1-3)) folic acid 400 mcg tablet 0.4 mg PO DAILY omega-3 fatty acids [Fish Oil Concentrate] 1,000 mg capsule 1,000 mg PO DAILY cholecalciferol (vitamin D3) 50 mcg (2,000 unit) capsule 50 mcg PO DAILY famotidine [Acid Batching Operator (famotidine)] 20 mg tablet 40 mg PO BID melatonin 5 mg tablet 5 mg PO BEDTIME PRN (Reason: Insomnia) sildenafil (pulm.hypertension) 20 mg tablet 20 mg PO DAILY PRN (Reason: Sexual Activity) Rx Instructions: administer doses at least 4-6 hours apart theanine 200 mg capsule 200 mg PO DAILY triamcinolone acetonide [Kenalog] 40 mg/mL suspension 40 mg IM .YEARLY Rx Instructions: takes in MD office (Asim) about 6-8 months ago atorvastatin 80 mg tablet 80 mg PO HS Qty: 90 3RF finasteride 5 mg tablet 5 mg PO DAILY Qty: 90 3RF acyclovir 400 mg tablet 400 mg PO TID PRN (Reason: herpes outbreak) 7 Days Qty: 21 5RF cephalexin 500 mg capsule 500 mg PO TID Qty: 10 0RF Label Comments: patient takes PRN prior to dental work Rx Instructions: Begin in the a.m., for 02/05/2021 celecoxib 100 mg capsule See Rx Instructions .ROUTE .COMPLEX Qty: 90 3RF Dose Instruction: TAKE 1 CAPSULE DAILY Rx Instructions: TAKE 1 CAPSULE DAILY bupropion HCl 150 mg tablet sustained-release 12 hr 150 mg PO BID Qty: 180 0RF fluticasone propionate 50 mcg/actuation spray,suspension 1 spray Intranasal BID Qty: 47.4 3RF aspirin [Adult Aspirin Regimen] 81 mg tablet,delayed release (DR/EC) 81 mg PO BID losartan [Cozaar] 25 mg tablet 12.5 mg PO QDAY Rx Instructions: Takes 12.5 mg. metoprolol succinate 25 mg Tablet Extended Release 24 Hr 12.5 mg PO BID ezetimibe 10 mg tablet 10 mg PO DAILY Follow up/Referrals: Flex Dailey MD [Primary Care Provider] - Discharge Data Primary Care Provider: Flex Dailey Attending Provider: Paul Sierra VTE Deep Vein Thrombosis/Pulmonary Embolism Present on Admission: No
[2022-06-22 11:48] VITALS: BP 117/70; PULSE 82; RESP 18; TEMP 36.9; O2SAT 95
--- NOTE | 2022-06-22 13:47 | CM.DPC ---
DCP Discharge Home Per MD, pt's Echo completed and Stress test not available today and in review of risk factors plan is pt d/c to home with outpt Stress Test follow up. No identified barriers to discharge. Plan: Patient to d/c home today via spouse POV and close outpt f/u with PCP and outpt stress test. No further SW needs at this time and pt had declined any SW needs at d/c. NICKOLAS Doll
== END 2022-06-22 13:55 | disposition home or self-care (01) ==
LOC: ED 21:26 → AC 21:44
PROVIDERS: Emergency Medicine; Admitting Provider Family Medicine; Emergency Provider Emergency Medicine; Family Provider Family Medicine; PCP Family Medicine; Visit Provider Family Medicine
DX: R07.9 Chest pain, unspecified (principal); I10 Essential (primary) hypertension; I25.10 Atherosclerotic heart disease of native coronary artery without angina pectoris; G10 Huntington's disease; E78.5 Hyperlipidemia, unspecified; N40.0 Benign prostatic hyperplasia without lower urinary tract symptoms; Z95.1 Presence of aortocoronary bypass graft; Z20.822 Contact with and (suspected) exposure to COVID-19
CPT/HCPCS: 36415; 71045; 80048; 80053; 82550; 82553; 83690; 83735; 84484; 85025; 87635; 93005; 93010; 93306; 96372; 99217; 99284; C9803; G0378; A9270; J1650

== ENCOUNTER → 2022-07-27 09:11 | Outpatient (CLI) | payer MEDICARE, SELFPAY ==
[2022-06-20 21:54] VITALS: BMI 22.8
--- NOTE | 2022-07-27 09:12 | DI.NM.S_ITS ---
PROCEDURE: NM BURAK PERF SPECT R&S PHARM Rest and pharmacological stress myocardial perfusion SPECT with gated imaging and ejection fraction RADIOPHARMACEUTICAL: 11.8 mCi Tc-99m tetrafosmin IV at rest and 25.8 mCi Tc-99m tetrafosmin IV at peak effect of pharmacological stress. A [id number] was performed. INDICATIONS: Chest pain and pressure TECHNIQUE: Radiopharmaceutical was injected at peak stress test, and also at rest. SPECT images were obtained. SPECT myocardial perfusion images were displayed in short axis, horizontal long axis, and vertical long axis views. Gated images were reviewed using [employer] software. COMPARISON: None. CARDIAC STRESS: A pharmacologic stress test was performed under the supervision of an attending staff, using an infusion of regadenoson. Hemodynamic data: There is normal blood pressure and heart rate response to pharmacologic stress. Symptoms: None reported. EKG: No ECG changes after vasodilator infusion. FINDINGS: Raw data: There is good myocardial uptake of radiotracer. No significant motion artifacts. Xldg-pt-nhspj ratio is 0.34 (normal is less than 0.38 for tetrafosmin tracer). Left ventricle function: Gated images demonstrate normal left ventricular wall thickening. No segmental wall motion abnormalities. No transient ischemic dilation; TID is 0.82 (normal less than 1.3). Left ventricle resting end diastolic volume is 73 mL. Left ventricle stress ejection fraction is >75%; normal range is above 45%. Myocardial perfusion: There is a small size, mild intensity fixed basal to mid inferior wall defect. No reversible perfusion defects. IMPRESSION: Low risk study. No reversible perfusion defects. The small size, mild intensity fixed basal to mid inferior wall defect is most consistent with attenuation artifact in the setting of normal wall motion. Hyperdynamic left ventricular function. Dictated by: Ceci Landeros D.O. on 07/27/2022 at 16:31 Approved by: Ceci Landeros D.O. on 07/27/2022 at 16:36
[2022-07-27 10:47] LABS: COVID19 -Nasal RAPID Negative (Negative)
--- NOTE | 2022-07-27 14:19 | PM.TREADMILL ---
Cardiac Stress Test Report Referral & Results Date Patient Seen: 07/27/22 Requesting provider: Flex Dailey Indication: Chest pain, recent hospitalization Rest ECG: Unremarkable Procedure Note: After both written and verbal informed consent the patient had an IV started by the diagnostic imaging RN, and then was hooked up to the treadmill monitoring system. The Lexiscan material, and then the Cardiolite tracer, were administered sequentially. An additional 3 min was spent monitoring the patient while supine on the gurney. The patient had a normal response to all infused materials. Impression: Normal response to infuse materials as above, please see perfusion imaging report for details regarding possible ischemia Please note: Actual ECG tracings can be found in the PACS system.
== END ==
PROVIDERS: Family Provider Family Medicine; PCP Family Medicine; Referring Provider Family Medicine; Visit Provider Family Medicine
DX: I25.10 Atherosclerotic heart disease of native coronary artery without angina pectoris (principal); R07.9 Chest pain, unspecified; Z95.1 Presence of aortocoronary bypass graft; Z20.822 Contact with and (suspected) exposure to COVID-19
CPT/HCPCS: 78452; 87635; 93016; 93017; 93018; A9502; J2785

== ENCOUNTER → 2022-09-02 11:03 | Outpatient (CLI) | payer MEDICARE, SELFPAY ==
[2022-06-20 21:54] VITALS: BMI 22.8
[2022-09-02 13:50] LABS: TSH w/ Reflex to FT4 1.26 uIU/mL (0.47-4.68)
== END ==
PROVIDERS: Family Provider Family Medicine; PCP Family Medicine; Referring Provider Physician Assistant; Visit Provider Physician Assistant
DX: E78.2 Mixed hyperlipidemia (principal); R53.83 Other fatigue
CPT/HCPCS: 36415; 84443

== ENCOUNTER → 2023-08-03 07:06 | Outpatient (CLI) | payer MEDICARE, SELFPAY ==
[2022-06-20 21:54] VITALS: BMI 22.8
--- NOTE | 2023-08-03 07:07 | DI.US.S_ITS ---
PROCEDURE: US PELVIC LIMITED INDICATIONS: urinary frequency TECHNIQUE: Real-time transabdominal scanning was performed of the pelvic organs, with image documentation. COMPARISON: None. FINDINGS: Prevoid bladder volume is 84 cc. Postvoid bladder volume is 45 cc. No jets visualized. No intraluminal mass. IMPRESSION: Moderate postvoid residual. We strive to produce accurate, complete, and clear reports of imaging services. To assist us in improving patient care, this report was composed using standard report templates and voice recognition software. Therefore, it may contain abnormal punctuation, insertions and/or omissions. Occasional wrong-word or sound-alike substitutions may occur. Though we review the report and make efforts to correct it, we do recommend that the report be read carefully in proper context to recognize any text inaccuracies. Dictated by: Prabha Vasques M.D. on 08/03/2023 at 8:58 Approved by: Prabha Vasques M.D. on 08/03/2023 at 8:59
== END ==
LOC: US 07:07
PROVIDERS: Family Provider Family Medicine; PCP Family Medicine; Referring Provider Family Medicine; Visit Provider Family Medicine
DX: N40.1 Benign prostatic hyperplasia with lower urinary tract symptoms (principal); R35.0 Frequency of micturition; G10 Huntington's disease
CPT/HCPCS: 76857

== ENCOUNTER → 2023-08-04 07:21 | Outpatient (CLI) | payer OTHER, SELFPAY ==
[2022-06-20 21:54] VITALS: BMI 22.8
[2023-08-04 09:07] LABS: Appearance Urine UA CLEAR; Bilirubin Urine UA NEGATIVE (NEGATIVE); Color Urine UA YELLOW; Glucose Urine UA NEGATIVE (Negative); Ketones Urine UA NEGATIVE (NEGATIVE); Leukocyte Esterase Urine UA NEGATIVE (NEGATIVE); Nitrite Urine UA NEGATIVE (Negative); Occult Blood Urine UA NEGATIVE (Negative); Protein Urine UA NEGATIVE (Negative); Specific Gravity Urine UA 1.015 (1.000-1.035); Urobilinogen Urine UA 0.2 E.U./dL (0.2); pH Urine UA 6.5 (4.5-8.0)
[2023-08-04 09:33] LABS: Bacteria Urine Few (2-10); Culture Indicated Urine Cult Not Indicated; Mucus Urine 3+ (Negative); RBC Urine None Seen (0-5/HPF); Squamous Epithelial Cell Urine 0-1 /HPF (0-5/HPF); WBC Urine 0-1/HPF (0-5/HPF)
== END ==
PROVIDERS: Family Provider Family Medicine; PCP Family Medicine; Referring Provider Family Medicine; Visit Provider Family Medicine
DX: N40.1 Benign prostatic hyperplasia with lower urinary tract symptoms (principal); R35.0 Frequency of micturition
CPT/HCPCS: 81001

== ENCOUNTER → 2023-11-04 07:26 | Outpatient (CLI) | payer MEDICARE, SELFPAY ==
[2022-06-20 21:54] VITALS: BMI 22.8
[2023-11-04 08:27] LABS: Cholesterol 149 mg/dL (140-199); HDL Cholesterol 44 mg/dL (40-60); LDL Cholesterol Calculated 89 mg/dL (<100); Triglycerides 78 mg/dL (35-150)
== END ==
PROVIDERS: Family Provider Family Medicine; PCP Family Medicine; Referring Provider Internal Medicine Cardiovascular Disease; Visit Provider Internal Medicine Cardiovascular Disease
DX: I25.10 Atherosclerotic heart disease of native coronary artery without angina pectoris (principal)
CPT/HCPCS: 36415; 80061

== ENCOUNTER → 2024-01-05 07:27 | Outpatient (CLI) | payer MEDICARE, SELFPAY ==
[2022-06-20 21:54] VITALS: BMI 22.8
[2024-01-05 09:44] LABS: Cholesterol 165 mg/dL (140-199); HDL Cholesterol 51 mg/dL (40-60); LDL Cholesterol Calculated 92 mg/dL (<100); Triglycerides 112 mg/dL (35-150)
== END ==
PROVIDERS: Family Provider Family Medicine; PCP Family Medicine; Referring Provider Internal Medicine Cardiovascular Disease; Visit Provider Internal Medicine Cardiovascular Disease
DX: I25.810 Atherosclerosis of coronary artery bypass graft(s) without angina pectoris (principal)
CPT/HCPCS: 36415; 80061

== ENCOUNTER → 2024-05-02 07:21 | Outpatient (CLI) | payer MEDICARE, SELFPAY ==
[2022-06-20 21:54] VITALS: BMI 22.8
[2024-05-02 09:08] LABS: Alanine Aminotransferase 56 IU/L (<50); Albumin 3.7 g/dL (3.5-5.0); Albumin Globulin Ratio 1.5 (1.0-2.8); Alkaline Phosphatase 93 U/L (38-126); Aspartate Aminotransferase 46 IU/L (17-59); Bilirubin Total 0.6 mg/dL (0.2-1.3); Blood Urea Nitrogen 13 mg/dL (9-20); Calcium 9.1 mg/dL (8.4-10.2); Carbon Dioxide 25 mmol/L (22-32); Chloride 108 mmol/L (98-107); Cholesterol 135 mg/dL (140-199); Estimated Glomerular Filt Rate > 60 mL/min (>60); Globulin 2.5 g/dL (1.7-4.1); Glucose 99 mg/dL (80-110); HDL Cholesterol 43 mg/dL (40-60); HEMOLYSIS < 15 (0-50); LDL Cholesterol Calculated 73 mg/dL (<100); Sodium 138 mmol/L (137-145); Total Protein 6.2 g/dL (6.3-8.2); Triglycerides 95 mg/dL (35-150)
== END ==
PROVIDERS: Family Provider Family Medicine; PCP Family Medicine; Referring Provider Nurse Practitioner; Visit Provider Nurse Practitioner
DX: E78.5 Hyperlipidemia, unspecified (principal); I25.810 Atherosclerosis of coronary artery bypass graft(s) without angina pectoris
CPT/HCPCS: 36415; 80053; 80061

== ENCOUNTER → 2024-09-12 07:06 | Outpatient (CLI) | payer MEDICARE, SELFPAY ==
[2022-06-20 21:54] VITALS: BMI 22.8
[2024-09-12 08:24] LABS: Alanine Aminotransferase 66 IU/L (<50); Albumin Globulin Ratio 1.6 (1.0-2.8); Alkaline Phosphatase 93 U/L (38-126); Aspartate Aminotransferase 48 IU/L (17-59); BUN Creatinine Ratio 22.7 (6-22); Bilirubin Total 0.6 mg/dL (0.2-1.3); Blood Urea Nitrogen 15 mg/dL (9-20); Calcium 9.7 mg/dL (8.4-10.2); Carbon Dioxide 31 mmol/L (22-32); Chloride 105 mmol/L (98-107); Cholesterol 130 mg/dL (140-199); Estimated Glomerular Filt Rate > 60 mL/min (>60); Globulin 2.5 g/dL (1.7-4.1); Glucose 92 mg/dL (80-110); HDL Cholesterol 40 mg/dL (40-60); HEMOLYSIS < 15 (0-50); LDL Cholesterol Calculated 72 mg/dL (<100); Potassium 4.1 mmol/L (3.4-5.1); Sodium 137 mmol/L (137-145); Total Protein 6.5 g/dL (6.3-8.2); Triglycerides 90 mg/dL (35-150)
== END ==
PROVIDERS: Family Provider Family Medicine; PCP Family Medicine; Referring Provider Nurse Practitioner; Visit Provider Nurse Practitioner
DX: I25.810 Atherosclerosis of coronary artery bypass graft(s) without angina pectoris (principal); E78.5 Hyperlipidemia, unspecified
CPT/HCPCS: 36415; 80053; 80061

== ENCOUNTER → 2024-12-28 09:30 | Outpatient (CLI) | payer MEDICARE, OTHER, SELFPAY ==
[2022-06-20 21:54] VITALS: BMI 22.8
--- NOTE | 2024-12-28 09:32 | DI.RAD.S_ITS ---
PROCEDURE: XR HIP W PEL IF DONE RT 2V INDICATIONS: rt hip pain TECHNIQUE: AP pelvis and lateral view of the hip acquired. COMPARISON: None. FINDINGS: Bones: Patient is status post right hip arthroplasty, with hardware components in expected positions. The hip joint appears congruent. The visualized bony structures appear intact. Soft tissues: No suspicious soft tissue densities. Atherosclerotic vascular calcifications noted. IMPRESSION: Expected post-operative appearance of a hip arthroplasty. No evidence of acute osseous abnormality or hardware complication. Dictated by: Castillo Grimm M.D. on 12/28/2024 at 19:34 Approved by: Castillo Grimm M.D. on 12/28/2024 at 19:35
--- NOTE | 2024-12-28 09:32 | DI.RAD.S_ITS ---
PROCEDURE: XR KNEE LT 3V INDICATIONS: knee pain TECHNIQUE: 3 views of the knee were acquired. COMPARISON: None. FINDINGS: Bones: Hardware noted without evidence of complication status post partial medial tibiofemoral compartment knee arthroplasty. Advanced degenerative changes are noted within the lateral tibiofemoral and patellofemoral compartments with associated osteophytosis. No fractures or dislocations. No suspicious bony lesions. Soft tissues: No joint effusion. No suspicious soft tissue calcifications. IMPRESSION: No evidence of hardware complication or acute osseous abnormalities status post partial medial tibiofemoral compartment knee arthroplasty. Dictated by: Castillo Grimm M.D. on 12/28/2024 at 19:35 Approved by: Castillo Grimm M.D. on 12/28/2024 at 19:36
== END ==
PROVIDERS: Family Provider Family Medicine; PCP Family Medicine; Referring Provider Family Medicine; Visit Provider Family Medicine
DX: M17.12 Unilateral primary osteoarthritis, left knee (principal); M25.551 Pain in right hip; Z96.641 Presence of right artificial hip joint
CPT/HCPCS: 73502; 73562

== ENCOUNTER → 2025-02-22 17:13 | Outpatient (CLI) | payer MEDICARE, OTHER, SELFPAY ==
[2022-06-20 21:54] VITALS: BMI 22.8
--- NOTE | 2025-02-22 17:14 | DI.MRI.S_ITS ---
PROCEDURE: MR KNEE LT WO CON INDICATIONS: MENISCAL TECHNIQUE: Noncontrast sagittal PD fast spin echo and STIR, sagittal 3-D FLASH with fat saturation; coronal T1 fast spin echo and STIR, and axial STIR through the knee. COMPARISON: [facility] [place], CR, XR KNEE 4+ VIEWS LEFT, 12/16/2023, 11:13. [facility], CR, XR KNEE LT 3V, 12/28/2024, 8:54. FINDINGS: Image quality: Metal artifact is seen related to the knee arthroplasty including areas of signal void, signal pile-up, and geometric distortion despite the use of metal artifact reduction techniques. Diagnostic information is obtained. 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 Posterior cruciate ligament: Intact. Medial collateral ligament: Intact. Lateral collateral ligament: Intact. Medial meniscus: Not visualized. Lateral meniscus: Diffuse degenerative tearing and maceration of the lateral meniscus with extrusion of the meniscal body beyond the femorotibial joint line. Medial and lateral tendons: The semimembranosus tendon insertions appear intact. Visualized portions of the pes anserinus tendons appear normal. The popliteus tendon is intact. Iliotibial band appears normal. Anterior structures: The quadriceps and patellar tendons appear intact. No patellar subluxation. No femoral trochlear dysplasia or ventral trochlear prominence. No edema in the infrapatellar fat pad. Bones: Postsurgical changes from medial unicompartmental knee arthroplasty with associated metal artifact. Mild [id number] signal deep to the tibial component could indicate mild loosening. Medial femorotibial cartilage: Status post arthroplasty. Lateral femorotibial cartilage: Diffuse full thickness cartilage loss throughout the weight-bearing portion of the lateral femorotibial compartment with subchondral edema, subchondral cystic changes and mild remodeling of the articular surfaces. Patellofemoral cartilage: High-grade and full-thickness cartilage loss throughout the patellofemoral compartment with areas of subchondral cystic changes and small marginal osteophytes. Soft tissues: Moderate joint effusion. Moderate medial popliteal cyst is seen the included musculature is normal in bulk. Fluid is seen tracking inferiorly along the popliteus tendon sheath. 11 mm ossified loose body posterior to the lateral femoral condyle. IMPRESSION: 1. Postsurgical changes from medial unicompartmental knee arthroplasty with associated metal artifact. Possible foci of T2-weighted hyperintense signal along the deep margin of the tibial component, which may be related to mild loosening versus artifact. 2. Diffuse full thickness cartilage loss throughout the lateral femorotibial compartment with mild remodeling of the articular surfaces. High-grade and full-thickness cartilage loss in the patellofemoral compartment. 3. Diffuse degenerative tearing and maceration of the lateral meniscus with extrusion of the meniscal body beyond the femorotibial joint line. 4. 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 5. Moderate joint effusion. 11 mm loose body is seen posterior to the lateral femorotibial compartment. Moderate medial popliteal cyst. Approved by: Alberto Leyva M.D. on 02/23/2025 at 16:30
== END ==
PROVIDERS: Family Provider Family Medicine; PCP Family Medicine; Referring Provider Family Medicine; Visit Provider Student in an Organized Health Care Education/Training Program
DX: S83.272A Complex tear of lateral meniscus, current injury, left knee, initial encounter (principal); S83.512A Sprain of anterior cruciate ligament of left knee, initial encounter; M25.462 Effusion, left knee; M23.42 Loose body in knee, left knee; M71.22 Synovial cyst of popliteal space [Baker], left knee; X58.XXXA Exposure to other specified factors, initial encounter; Z96.652 Presence of left artificial knee joint
CPT/HCPCS: 73721

== ENCOUNTER → 2025-04-06 07:32 | Outpatient (CLI) | payer MEDICARE, OTHER, SELFPAY ==
[2022-06-20 21:54] VITALS: BMI 22.8
--- NOTE | 2025-04-06 07:34 | DI.ECHO.S_ITS ---
[facility]+ [facility] : : [address] : : [place] : : [id number] : : Phone: [phone] Echocardiogram Report + + :Name: NAYAN PORTILLO Study Date: 04/06/2025 Height: 67 in : :Hospital ReadingLocation: Weight: 142 lb : : Gender: Male BSA: 1.7 m2 : :: 1945 Age: 79 yrs BP: 112/67 mmHg: :Reason For Study: CAD : :Ordering Physician: BAMBI, : :FLEX Performed By: Flex Palumbo : :Referring: FLEX ALCY : + + Interpretation Summary Normal biventricular size and systolic function. LVEF is 60%. Normal RV size and function. Normal atrial sizes. No significant valvular pathology is noted. Other findings as below. Procedure: A two-dimensional transthoracic echocardiogram with color flow and Doppler was performed. The study quality was technically good. Comparison is made with the echocardiogram of 06/22/2022. The patient was in normal sinus rhythm during the exam. Left Ventricle: The left ventricle is normal in size. There is normal left ventricular wall thickness. There is no ventricular septal defect visualized. Left ventricular ejection fraction is estimated to be 60 +/- 5%. Diastolic parameters suggest a relaxation abnormality of the left ventricle, consistent with probable normal filling pressures. Right Ventricle: The right ventricle is normal in size and function. Atria: The left atrial size is normal. Right atrial size is normal. There is no Doppler evidence for an interatrial shunt. Mitral Valve: The mitral valve leaflets are mildly calcified. There is trace mitral regurgitation. Aortic Valve: The aortic valve is trileaflet. The aortic valve is mildly calcified. No aortic regurgitation is present. Tricuspid Valve: The tricuspid valve leaflets are thin and pliable. There is trace tricuspid regurgitation. Pulmonic Valve: The pulmonic valve leaflets are thin and pliable; valve motion is normal. There is trace pulmonic regurgitation. Great Vessels: The aortic root is normal size. The dimensions of the ascending aorta are normal. The pulmonary artery is normal size. The IVC is of normal diameter and collapses greater than 50% with a sniff. This suggests a low right atrial pressure of 3 mm Hg. Pericardium/ Pleura There is no pericardial effusion. There is no pleural effusion. MMode/2D Measurements & Calculations LVIDd: 3.8 cm LVOT diam: 2.0 cm LVIDs: 2.5 cm Ao root diam: 3.1 cm FS: 34.4 % asc Aorta Diam: 3.3 cm EPSS: 0.68 cm IVSd: 0.90 cm LVPWd: 0.99 cm LV vasquez. diameter/BSA (cm/m^2): 2.2 LV sys. diameter/BSA (cm/m^2): 1.4 LA A2 area: 15.1 cm2 RA long axis: 4.7 cm LA A4 area: 16.6 cm2 RA area: 14.8 cm2 LA length (vol): 5.3 cm RA vol: 39.6 ml LA vol: 39.9 ml RA : 22.6 ml/m2 LA vol index: 22.8 ml/m2 IVC diam: 1.6 cm RVD1 (basal): 3.7 cm RVD2 (mid): 2.3 cm TAPSE: 1.6 cm Doppler Measurements & Calculations Ao V2 max: 111.8 cm/sec LVOT Max Anthony: 75.7 cm/sec Ao V2 mean: 83.9 cm/sec LV V1 max P.3 mmHg Ao max P.0 mmHg LV V1 VTI: 16.7 cm Ao mean P.1 mmHg DAMIAN(I,D): 2.2 cm2 Ao V2 VTI: 23.3 cm DAMIAN(V,D): 2.1 cm2 sev ratio: 0.72 DAMIAN indexed to BSA (cm^2/m^2): 1.3 MV E max anthony: 45.6 cm/sec TR max anthony: 227.8 cm/sec MV A max anthony: 59.8 cm/sec TR max P.8 mmHg MV E/A: 0.76 PA V2 max: 125.9 cm/sec Med Peak E' Anthony: 4.9 cm/sec PA V2 mean: 61.3 cm/sec E/E' med: 9.3 PA mean P.9 mmHg Lat Peak E' Anthony: 6.2 cm/sec PA pr(Accel): 67.0 mmHg E/E' lat: 7.3 E/e' average: 8.3 MV dec time: 0.20 sec SV(LVOT): 51.0 ml Reading Physician:01:01 PM
[2025-04-06 08:13] LABS: Add Manual Diff / Slide Review NO; Basophils Absolute Auto 100 /uL (0-100); Basophils Percent Auto 1.4 % (0-2); Eosinophils Absolute Auto 500 /uL (0-450); Eosinophils Percent Auto 10.8 % (2-4); Hematocrit 42.2 % (41-53); Hemoglobin 14.1 g/dL (13.5-17.5); Lymphocytes Absolute Auto 1100 /uL (1100-4500); Lymphocytes Percent Auto 26.8 % (25-40); Mean Corpuscular HGB Conc 33.4 % (30-36); Mean Corpuscular Hemoglobin 29.4 PG (26-34); Mean Corpuscular Volume 88.2 fL (80-100); Monocytes Absolute Auto 500 /uL (0-900); Monocytes Percent Auto 12.6 % (3-14); Neutrophils Absolute Auto 2000 /uL (1500-7000); Neutrophils Percent Auto 48.4 % (50-75); Platelet Count 188 X10^3/uL (150-400); Red Blood Cell Count 4.78 X10^6/uL (4.5-5.9); Red Cell Distribution Width 13.8 % (11.6-14.8); White Blood Cell Count 4.2 X10^3/uL (4.5-11.0)
[2025-04-06 08:38] LABS: Alanine Aminotransferase 37 IU/L (<50); Albumin 3.9 g/dL (3.5-5.0); Albumin Globulin Ratio 1.5 (1.0-2.8); Alkaline Phosphatase 84 U/L (38-126); Aspartate Aminotransferase 34 IU/L (17-59); Bilirubin Total 0.6 mg/dL (0.2-1.3); Blood Urea Nitrogen 13 mg/dL (9-20); Calcium 9.5 mg/dL (8.4-10.2); Carbon Dioxide 24 mmol/L (22-32); Chloride 106 mmol/L (98-107); Cholesterol 142 mg/dL (140-199); Estimated Glomerular Filt Rate > 60 mL/min (>60); Globulin 2.6 g/dL (1.7-4.1); Glucose 95 mg/dL (70-99); HDL Cholesterol 36 mg/dL (40-60); HEMOLYSIS < 15 (0-50); LDL Cholesterol Calculated 78 mg/dL (<100); Potassium 4.3 mmol/L (3.4-5.1); Sodium 137 mmol/L (137-145); Total Protein 6.5 g/dL (6.3-8.2); Triglycerides 141 mg/dL (35-150)
[2025-04-06 08:40] LABS: Hemoglobin A1C% w Est Avg Glu 5.4 % (4.0-6.0)
[2025-04-06 09:13] LABS: TSH w/ Reflex to FT4 0.94 uIU/mL (0.47-4.68)
== END ==
PROVIDERS: PCP Family Medicine; Referring Provider Family Medicine; Visit Provider Family Medicine
DX: I25.10 Atherosclerotic heart disease of native coronary artery without angina pectoris (principal); I48.0 Paroxysmal atrial fibrillation; E78.2 Mixed hyperlipidemia; I10 Essential (primary) hypertension; Z95.1 Presence of aortocoronary bypass graft
CPT/HCPCS: 36415; 80053; 80061; 83036; 84443; 85025; 93306